=== PATIENT | female | born 1945 | race Caucasian/White ===

== ENCOUNTER → 2016-04-09 | Outpatient (CLI) | payer MEDICARE, OTHER ==
[~2016-04-09] MED LIST: ALPR0.254; ATR20T PO; AZIT-21 PO; BUSP5TAB59; CYCL10TA9 PO; D50KC PO; FORTEO; HYDR-34 PO; LEVO50TA6; METO-272; MPR22TI; MULT-264; NF-CYM60C; NFPRILOC40; OMEP-10 PO; OXYC-12 PO; SERT100T8; THYROID MED; TRAM50TA2; [UNRECOGNIZED DRUG - OTHER] PO
--- NOTE | 2016-04-09 10:06 | Diagnostic Imaging Report ---
PROCEDURE: CT chest without contrast. TECHNIQUE: Multiple contiguous axial images were obtained through the chest without the use of intravenous contrast. INDICATION: Lung nodule. COMPARISON: 01/19/2016. FINDINGS: Again seen is a pleural based irregular nodularity seen along the lateral aspect of each lung in the mid to lower lung zone bilaterally. No significant change from the previous exam is seen. There is a new focus of irregular nodularity in the anterior aspect of the right upper lobe, image 21, probably related to focal atelectasis. There is no significant consolidation or mass identified. The mediastinum demonstrates no mass or significantly enlarged nodes. The thoracic aorta is normal in caliber. No pleural or pericardial effusion. There is a cyst in the right hepatic lobe measuring 2.3 cm. The osseous structures demonstrate chronic compression fractures of T5 and T6. IMPRESSION: Stable bilateral lateral subpleural nodular densities in the mid to lower lung zones, favored to be related to scarring. Another followup in 6 months is recommended to ensure stability. Dictated by: Dictated on workstation # [id number]
== END ==
LOC: RAD 08:29
PROVIDERS: ATTEND Otolaryngology Otolaryngology/Facial Plastic Surgery
DX: R91.8 Other nonspecific abnormal finding of lung field (principal)
CPT/HCPCS: 71250

== ENCOUNTER 2016-06-29 10:21 | Emergency (ER) | payer MEDICARE, OTHER ==
[~2016-06-29] VITALS: Ht 167.6 cm; Wt 59.0 kg
[~2016-06-29 10:21] MED LIST changes: -ALPR0.254; -BUSP5TAB59; -LEVO50TA6; -METO-272; -SERT100T8; -TRAM50TA2
[2016-06-29] MEDS ORDERED: L.E.T. SYRINGE 5 ML ONE (10:28)
[2016-06-29] MEDS ORDERED: ALPR0.254 (10:46)
[2016-06-29] MEDS ORDERED: TRAM50TA2 (10:46)
[2016-06-29] MEDS ORDERED: BUSP5TAB59 (10:46)
[2016-06-29] MEDS ORDERED: SERT100T8 (10:46)
[2016-06-29] MEDS ORDERED: LEVO50TA6 (10:46)
[2016-06-29] MEDS ORDERED: METO-272 (10:46)
[2016-06-29] MEDS ORDERED: TETANUS,DIPTH,PERTUSS P/F (BOOSTRIX) 0.5 ML VIAL IM ONE (11:00)
[2016-06-29] MEDS ORDERED: LIDOCAINE/EPI 1%-1:100,000 (XYLOCAINE) 20ML ONE (11:11)
[2016-06-29] MEDS ORDERED: LIDOCAINE/EPI 1%-1:100,000 (XYLOCAINE) 20ML INJ ONE (11:15)
--- NOTE | 2016-06-29 11:34 | Diagnostic Imaging Report ---
PROCEDURE: CT head and CT cervical spine without contrast. TECHNIQUE: Multiple contiguous axial images were obtained through the brain and cervical spine without the use of intravenous contrast. Sagittal and coronal reformations through the cervical spine were then performed. INDICATION: Injury head and neck pain CT head There is no mass, shift of midline or hemorrhage to suggest an acute intracranial abnormality. The ventricles are somewhat prominent but no different in size when compared to the prior exam of 10/05/13. The previous exam did note considerable soft tissue edema over the left frontal bone. That injury has resolved. There is mild soft tissue edema over the right frontal bone on this study. The bone window show no sign of a skull fracture. The orbits are symmetrical and within normal limits. The sinuses, where visualized are clear. IMPRESSION: There is mild soft tissue edema over the right frontal bone. There is no evidence for a skull fracture or for an acute intracranial abnormality. CT cervical spine: The previous CT cervical spine exam performed on 10/05/13 noted degenerative disc and bony disease throughout the cervical spine, particularly at the C3-4 level. There was a calcified disc bulge centrally at this level which did result in central stenosis. That disc bulge is again evident on this study and does not seem to change significantly. The other degenerative changes involving the cervical spine seen on the prior exam do not appear have progressed significantly either. There is no fracture or acute bony abnormality identified. The previous exam did note a 5 MM low density nodule in the right lobe of thyroid. A thyroid ultrasound was recommended for further evaluation. According to our records that exam was not performed. On this study the low-density nodule in the right lobe now measures approximately 10-11 MM. I would recommend that ultrasound be performed for further study. The lung apices are clear. IMPRESSION: 1. There is no evidence for acute bony abnormality. 2. The degenerative disc and bony disease seen previously has not progressed significantly. 3. The low-density nodule in the right lobe of thyroid noted on the prior exam has increased in size. Ultrasound would be recommended to better characterize this finding. Dictated by: Dictated on workstation # [id number]
--- NOTE | 2016-06-29 11:43 | ED Fall/Injury ---
General Chief Complaint: Trauma-Non Activation Stated Complaint: FALL/HEAD INJ Nursing Triage Note: PT FELL AT HOME MISSED STEP, DENIES LOC, DENIES NECK PAIN, HAS LAC TO R SIDE FOREHEAD APPROX 3CM LENGTH. NO BLEEDING AT THIS X. Source: patient, family Exam Limitations: no limitations History of Present Illness Time seen by provider: 10:25 Initial Comments This feisty 71-year-old woman presents to the emergency room after tripping on the curb in the parking lot and falling onto the concrete. She struck her forehead on the concrete and has a significant laceration with significant bleeding. She denies any loss of consciousness or signs or symptoms of concussion. She denies neck injury or pain. She also has contusions to her knees but is ambulatory. Bleeding is controlled at this time but there was significant bleeding at the scene. She arrives by private vehicle. She reports some difficulty with balance and walking chronically due to spinal stenosis and joint pain. Location Injury Occurred: HOME Occurred: just prior to arrival Allergies and Home Medications Allergies Coded Allergies: Penicillins (Unverified Allergy, Mild, 05/19/08) cephalexin (Verified Allergy, Mild, HIVES, TONGUE SWELLS, 05/26/08) midazolam HCl (Unverified Allergy, Mild, "SHAKING", 12/16/12) Iodinated Contrast Media - IV Dye (Unverified Allergy, Unknown, HIVES, ) Uncoded Allergies: ENVIRONMENTAL (Allergy, Mild, 05/19/08) Home Medications Alprazolam 0.25 Mg Tablet, #60 (Reported) Atorvastatin 20 Mg Tablet, 1 EACH PO DAILY, (Reported) Buspirone HCl 5 Mg Tablet, #60 (Reported) Ergocalciferol 50,000 Unit Capsule, 50,000 UNIT PO WEEKLY, (Reported) Levothyroxine Sodium 50 Mcg Tablet, #90 (Reported) Metoprolol Succinate 50 Mg Tab.er.24h, #90 (Reported) Omeprazole 20 Mg Capsule.dr, 20 MG PO DAILY, (Reported) Oxycodone Hcl/Acetaminophen 1 Each Tablet, 1-2 EACH PO Q4-6H PRN, #20 (Reported) MAY TAKE 1 OR 2 TABS BY MOUTH EVERY 4-6 HRS NEEDED FOR PAIN. DO NOT EXCEED 3000 MG TYLENOL(ACETAMINOPHEN)IN A 24 HR PERIOD. (NO MORE THAN 9 TABS IN 24 HRS) Sertraline HCl 100 Mg Tablet, #180 (Reported) Tramadol HCl 50 Mg Tablet, #90 (Reported) [Lamsil] , 250 MG PO DAILY, (Reported) Constitutional: no symptoms reported Eyes: No Symptoms Reported Ears, Nose, Mouth, Throat: no symptoms reported Respiratory: no symptoms reported Cardiovascular: no symptoms reported Gastrointestinal: no symptoms reported Genitourinary: no symptoms reported Musculoskeletal: see HPI Skin: see HPI Psychiatric/Neurological: No Symptoms Reported Past Vwdbqsw-Gcahud-Mtcvxw Hx Patient Social History Alcohol Use: Denies Use Recreational Drug Use: No Smoking Status: Never a Smoker Recent Foreign Travel: No Contact w/Someone Who Travel: No Recent Infectious Disease Expo: No Immunizations Up To Date Tetanus Booster (TDap): More than 5yrs Surgeries HX Surgeries: Yes (OTHROPEDIC-l knee, l side of pelvis, CHEST TUBE) Surgeries: Orthopedic Respiratory Hx Respiratory Disorders: No Cardiovascular Hx Cardiac Disorders: Yes (30% blockage in the LAD) Cardiac Disorders: Coronary Artery Disease, Hypertension Neurological Hx Neurological Disorders: Yes (Final stenosis) Reproductive System Hx Reproductive Disorders: No Sexually Transmitted Disease: No 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 Genitourinary Hx Genitourinary Disorders: No Gastrointestinal Hx Gastrointestinal Disorders: Yes Gastrointestinal Disorders: Gastroesophageal Reflux Musculoskeletal Hx Musculoskeletal Disorders: Yes (Spinal stenosis) Musculoskeletal Disorders: Arthritis Endocrine Hx Endocrine Disorders: Yes Endocrine Disorders: Hypothyroidsim HEENT HX ENT Disorders: Yes (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) Hearing Impairment: Hard of Hearing Cancer Hx Cancer: Yes Cancer: Skin Psychosocial Hx Psychiatric Problems: Yes Behavioral Health Disorders: Depression Integumentary HX Skin/Integumentary Disorder: No Blood Transfusions Hx Blood Disorders: No Adverse Reaction to a Blood Tr: No Physical Exam Vital Signs Vital Sign - Last 12Hours 06/29/16 10:25 Temp 97.9 Pulse 62 Resp 18 B/P (MAP) 165/80 Pulse Ox 98 Capillary Refill : Less Than 3 Seconds General Appearance: WD/WN, no apparent distress HEENT: PERRL/EOMI, TMs normal, pharynx normal, other (3 cm laceration above the right brow) Neck: non-tender, supple, normal inspection Cardiovascular: regular rate, rhythm, no edema, no murmur Respiratory: lungs clear, normal breath sounds, no respiratory distress, no accessory muscle use Gastrointestinal: normal bowel sounds, non tender, soft Extremities: swelling, other (Tenderness, swelling, and abrasions to the knees bilaterally, left greater than right. 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, no motor/sensory deficits, alert, normal mood/affect, oriented x 3 Skin: normal color, warm/dry Cathy Coma Score Best Eye Response: (4) Open Spontaneously Best Verbal Response: (5) Oriented Best Motor Response: (6) Obeys Commands Cathy Total: 15 Laceration Repair : Wound Location: Face Wound Length (cm): 3 Wound's Depth, Shape: sub Q Wound Explored: clean Irrigated w/ Saline (ccs): 100 Betadine Prep?: Yes Anesthesia: Lidocaine w/ Epi Volume Anesthetic (ccs): 3 Suture: Prolene Suture Size: 5-0 Number of Sutures: 4 Progress/Results/Core Measures Results/Orders My Orders Orders - AVNI RENEE MD Let Solution (Let Solution) (06/29/16 10:28) Ct Head/Cervical Spine Wo (06/29/16 10:34) Dipht,Pertuss(Acell),Tet Adult (Boostrix (06/29/16 11:00) Lidocaine/Epi 1% 1:100,000 (Xylocaine /E (06/29/16 11:15) Lidocaine/Epi 1% 1:100,000 (Xylocaine /E (06/29/16 11:11) Knee, Left, 3 Views (06/29/16 11:48) Medications Given in ED Vital Signs/I&O Vital Sign - Last 12Hours 06/29/16 06/29/16 10:25 11:53 Temp 97.9 97.9 Pulse 62 54 Resp 18 16 B/P (MAP) 165/80 Pulse Ox 98 99 Blood Pressure Mean: 108 Progress Note : Progress Note LET was applied to the laceration during imaging of the head. Laceration was repaired with suture. She was given a tetanus booster with a Boostrix. She was advised to stay home from work today and to ambulate with a cane or walker. She was also informed of the thyroid nodule that has increased in size. She was instructed to follow-up with her doctor regarding further imaging. Patient and her daughter expressed understanding after review of discharge instructions. Patient was noted to have some difficulty bearing weight on the left knee when she got up to get dressed. X-ray images of the knee were obtained. Diagnostic Imaging Diagonstic Imaging: CT Plain Films/CT/US/NM/MRI: c-spine, head Comments CT head and C-spine viewed by me and report reviewed. See report below: NAME: [facility] REC#: [id number] PT STATUS: REG ER : 1945 PHYSICIAN: AVNI RENEE MD ADMIT DATE: 06/29/16/ER Draft Date of Exam:06/29/16 CT HEAD/CERVICAL SPINE WO PROCEDURE: CT head and CT cervical spine without contrast. TECHNIQUE: Multiple contiguous axial images were obtained through the brain and cervical spine without the use of intravenous contrast. Sagittal and coronal reformations through the cervical spine were then performed. INDICATION: Injury head and neck pain CT head There is no mass, shift of midline or hemorrhage to suggest an acute intracranial abnormality. The ventricles are somewhat prominent but no different in size when compared to the prior exam of 10/05/13. The previous exam did note considerable soft tissue edema over the left frontal bone. That injury has resolved. There is mild soft tissue edema over the right frontal bone on this study. The bone window show no sign of a skull fracture. The orbits are symmetrical and within normal limits. The sinuses, where visualized are clear. IMPRESSION: There is mild soft tissue edema over the right frontal bone. There is no evidence for a skull fracture or for an acute intracranial abnormality. CT cervical spine: The previous CT cervical spine exam performed on 10/05/13 noted degenerative disc and bony disease throughout the cervical spine, particularly at the C3-4 level. There was a calcified disc bulge centrally at this level which did result in central stenosis. That disc bulge is again evident on this study and does not seem to change significantly. The other degenerative changes involving the cervical spine seen on the prior exam do not appear have progressed significantly either. There is no fracture or acute bony abnormality identified. The previous exam did note a 5 MM low density nodule in the right lobe of thyroid. A thyroid ultrasound was recommended for further evaluation according to our records that exam was not performed. On this study the low-density nodule in the right lobe now measures approximately 10-11 MM. I would recommend that ultrasound be performed for further study. The lung apices are clear. IMPRESSION: 1. There is no evidence for acute bony abnormality. 2. Degenerative disc and bony disease seen previously has not progressed significantly. 3. The low-density nodule in the right lobe of thyroid noted on the prior exam has increased in size. Ultrasound would be recommended to better characterize this finding. Dictated on workstation # [id number] Dict: 06/29/16 1103 Trans: 06/29/16 1134 [facility] [id number] Interpreted by: DONNA FERRELL MD Diagonstic Imaging: Xray Plain Films/CT/US/NM/MRI: knee Comments Knee x-ray viewed by me and report reviewed. See report below: NAME: [facility] REC#: [id number] PT STATUS: DEP ER : 1945 PHYSICIAN: AVNI RENEE MD ADMIT DATE: 06/29/16/ER Signed Date of Exam: 06/29/16 KNEE, LEFT, 3 VIEWS INDICATION: Fall. Pain superiorly to knee. FINDINGS: There is fluid within the suprapatellar bursa. No fractures are demonstrated. There is considerable degenerative disease noted of the patellofemoral joint. Mild degenerative changes noted in the medial compartment. Articulating surfaces of the femoral condyles are smooth. No loose bodies demonstrated. IMPRESSION: There is effusion in the suprapatellar bursa with advanced degenerative disease of the patellofemoral joint. No acute fractures or dislocations demonstrated. Dictated by: Dictated on workstation # [id number] Dict: 06/29/16 1214 Trans: 06/29/16 1621 Interpreted by: TENA KENYON MD Electronically signed by: TENA KENYON MD 06/29/16 1621 Departure Impression Impression: Primary Impression: Fall on same level from tripping as cause of accidental injury Additional Impressions: Laceration of forehead Qualified Codes: S01.81XA - Laceration without foreign body of other part of head, initial encounter Frequent falls Spinal stenosis Qualified Codes: M48.00 - Spinal stenosis, site unspecified Thyroid nodule Swelling of left knee joint Contusion of left knee Qualified Codes: S80.02XA - Contusion of left knee, initial encounter Disposition: HOME, SELF-CARE Condition: Improved Departure-Patient Inst. Decision time for Depature: 11:38 Referrals: APOLINAR MANCINI DO (PCP/Family) Primary Care Physician Patient Instructions: Laceration Repair With Stitches (DC) Add. Discharge Instructions: Monitor your wound for signs of infection including increasing redness, increasing pain, puslike drainage, or fever. Return to care promptly few notice these signs or symptoms. You may shower as usual but avoid submersion until sutures are removed. Avoid scrubbing directly over the sutures. Return to the ER in about 7 days to have your sutures removed. Follow-up with Dr. De León regarding your spinal stenosis, difficulty with balance, and falls. Do not return to work today. Follow-up with your primary care provider as soon as possible. You had an incidental finding of a thyroid nodule on your CT scan which has increased in size from the prior CT scan. You should have an ultrasound performed to further evaluate this nodule. Please follow-up with your doctor to discuss further. All discharge instructions reviewed with patient and/or family. Voiced understanding. Copy Copies To 1: APOLINAR MANCINI JOSHUA T MD Jun 29, 2016 11:43
[2016-06-29 11:53] VITALS: BP 163/57
--- NOTE | 2016-06-29 12:18 | Diagnostic Imaging Report ---
INDICATION: Fall. Pain superiorly to knee. FINDINGS: There is fluid within the suprapatellar bursa. No fractures are demonstrated. There is considerable degenerative disease noted of the patellofemoral joint. Mild degenerative changes noted in the medial compartment. Articulating surfaces of the femoral condyles are smooth. No loose bodies demonstrated. IMPRESSION: There is effusion in the suprapatellar bursa with advanced degenerative disease of the patellofemoral joint. No acute fractures or dislocations demonstrated. Dictated by: Dictated on workstation # [id number]
== END 2016-06-29 12:22 | disposition home or self-care (01) ==
LOC: EDUNIT# 10:21 → ER 10:22
DX: S01.81XA Laceration without foreign body of other part of head, initial encounter (principal); S80.02XA Contusion of left knee, initial encounter; Z23 Encounter for immunization; M47.812 Spondylosis without myelopathy or radiculopathy, cervical region; M48.02 Spinal stenosis, cervical region; E04.1 Nontoxic single thyroid nodule; Z79.899 Other long term (current) drug therapy; W10.9XXA Fall (on) (from) unspecified stairs and steps, initial encounter; Y92.009 Unspecified place in unspecified non-institutional (private) residence as the place of occurrence of the external cause; Y99.8 Other external cause status
CPT/HCPCS: 12013; 70450; 72125; 73562; 90471; 90715

== ENCOUNTER → 2016-07-18 | Outpatient (CLI) | payer MEDICARE, OTHER ==
[~2016-07-18] MED LIST changes: +ALPR0.254; +BUSP5TAB59; +LEVO50TA6; +METO-272; +SERT100T8; +TRAM50TA2
--- NOTE | 2016-07-18 13:12 | Diagnostic Imaging Report ---
PROCEDURE: US Thyroid. TECHNIQUE: Multiple real-time grayscale images were obtained of the thyroid in various projections. Thyroid nodules seen on CT of 06/29/2016. No prior thyroid ultrasound is available for comparison. FINDINGS: The right thyroid lobe is 4.2 x 1.8 x 1.2 cm. The left thyroid lobe is 4.5 x 1.1 x 1.0 cm. There is a dominant solid nodule measuring 1.2 x 1.1 x 1.1 cm in the mid right thyroid lobe demonstrating mild internal vascularity with color Doppler. The left lobe demonstrates a calcified nodule measuring 0.7 x 0.6 x 0.5 cm with shadowing and adjacent hypoechoic nodule measuring 0.6 x 0.3 x 0.5 cm. IMPRESSION: Indeterminate thyroid nodules may relate to multinodular goiter. Dictated by: Dictated on workstation # [id number]
== END ==
LOC: RAD 08:16
PROVIDERS: ATTEND Otolaryngology Otolaryngology/Facial Plastic Surgery
DX: E04.1 Nontoxic single thyroid nodule (principal)
CPT/HCPCS: 76536

== ENCOUNTER 2016-08-20 08:00 | Outpatient (CLI) | payer MEDICARE, OTHER ==
[~2016-08-20] VITALS: Ht 167.6 cm; Wt 59.0 kg
[~2016-08-20 08:00] MED LIST changes: -ALPR0.254; +ALPR0.254 PO; -BUSP5TAB59; +BUSP5TAB59 PO; -LEVO50TA6; +LEVO50TA6 PO; -METO-272; +METO-272 PO; -SERT100T8; +SERT100T8 PO; -TRAM50TA2; +TRAM50TA2 PO
[2016-08-20] MEDS ORDERED: HYDR-3820 PO (08:43)
== END 2016-08-20 09:00 ==
LOC: PREOP 08:00
PROVIDERS: ATTEND Surgery Pediatric Surgery
DX: Z01.818 Encounter for other preprocedural examination (principal); Z12.11 Encounter for screening for malignant neoplasm of colon; R13.10 Dysphagia, unspecified

== ENCOUNTER 2016-08-21 08:14 | Day surgery (SDC) | payer MEDICARE, OTHER ==
[~2016-08-21] VITALS: Ht 167.6 cm; Wt 59.0 kg
[~2016-08-21 08:14] MED LIST changes: +HYDR-3820 PO
[2016-08-21 08:35] VITALS: BP 113/72
[2016-08-21] MEDS ORDERED: fentaNYL INJECTION 100 MCG/2 ML AMP IVP PRN (08:45)
[2016-08-21] MEDS ORDERED: MIDAZOLAM 2 MG/2 ML (VERSED) VIAL IVP PRN (08:45)
[2016-08-21] MEDS ORDERED: FLUMAZENIL (ROMAZICON) 0.1 MG/ML 5 ML VIAL INJ PRN (08:45)
[2016-08-21] MEDS ORDERED: NALOXONE 0.4 MG/ML 1 ML (NARCAN) VIAL IVP PRN (08:45)
[2016-08-21] MEDS ORDERED: LIDOCAINE JELLY 2% (XYLOCAINE) 5 ML TUBE MM PRN (08:45)
[2016-08-21] MEDS ORDERED: NS IV 500 ML 500 ML IV SCH (08:45)
[2016-08-21] MEDS ORDERED: HURRICAINE EXT TUBE (BENZOCAINE) XX PRN (08:45)
--- NOTE | 2016-08-21 10:04 | Conscious Sedation/ASA ---
Conscious Sedation Pre-Proced Time Reviewed: 09:15 ASA Class: 2 Airway Mallampati Classification: (cocopah appropriate class) I. II. III, IV Lungs Heart ASA score ASA 1: a normal healthy patient ASA 2: a patient with a mild systemic disease (mid diabetes, controlled hypertension, obesity ASA 3: a patient with a severe systemic disease that limits activity (angina , COPD, prior Myocardial infarction) ASA 4: a patient with an incapacitating disease that is a constant threat to life (CHF, renal failure) ASA 5: a moribund patient not expected to survive 24 hrs. (ruptured aneurysm) ASA 6: a declared brain patient whose organs are being harvested. For emergent operations, add the letter E after the classification Grade 2 Sedation Plan: Analgesia, Amnesia, Plan communicated to team members, Discussed options with patient/fam, Discussed risks with patient/fam Note The patient is an appropriate candidate to undergo the planned procedure, sedation, and anesthesia. The patient immediately re-assessed prior to indication. ANABELA PALOMARES MD Aug 21, 2016 10:04
--- NOTE | 2016-08-21 10:05 | Progress Note-Pre Operative ---
Pre-Operative Progress Note H&P Reviewed The H&P was reviewed, patient examined and no changes noted. Date Seen by Provider: Aug 21, 2016 Time Seen by Provider: 10:15 Date H&P Reviewed: Aug 21, 2016 Time H&P Reviewed: 09:15 Pre-Operative Diagnosis: GERD, dysphagia, change bowel habits ANABELA PALOMARES MD Aug 21, 2016 10:04
[2016-08-21] MEDS ORDERED: ACETAMINOPHEN 325 MG TABLET/CAPLET (TYLENOL) PO PRN (10:15)
[2016-08-21] MEDS ORDERED: morphine INJ 10 MG/ML 1ML (SYR OR VIAL) IV PRN (10:15)
[2016-08-21] MEDS ORDERED: HYDROcodone/APAP 5 MG/325 MG (LORTAB) TAB PO PRN (10:15)
[2016-08-21] MEDS ORDERED: ONDANSETRON 4 MG/2 ML (SDV) Z0FRAN IV PRN (10:15)
[2016-08-21] MEDS ORDERED: PROPOFOL INJECTION 50 ML IV ONE (10:46)
[2016-08-21] MEDS ORDERED: proPOfol 200 MG/20 ML (DIPRIVAN) VIAL IV ONE (11:25)
--- NOTE | 2016-08-21 12:03 | Progress Note-Post Operative ---
Post-Operative Progess Note Surgeon (s)/Nursing Support Worker (s) Surgeon ANABELA PALOMARES MD Nursing Support Worker: none Pre-Operative Diagnosis GERD, dysphagia, change bowel habits Post-Operative Diagnosis reflux esophagitis(class B-C)with distal esophageal stricture, moderate gastritis with small healing antral ulcer. chronic stage 2 ext and int hemorrhoids, mild sigmoid diverticulosis. Procedure & Operative Findings Date of Procedure 08/21/16 Procedure Performed/Findings EGD with bx and dilatation. Anesthesia Type MAC Estimated Blood Loss Estimated blood loss (mL): minimal Specimens/Packing Specimens Removed antrum, GE jxn ANABELA PALOMARES MD Aug 21, 2016 12:03 pm
[2016-08-21 12:05] VITALS: BP 127/78
--- NOTE | 2016-08-21 12:08 | Discharge Inst-Surgical ---
D/C Lap Instructions-MARIELLE Follow Up PRN Activity as tolerated High Fiber Diet 25g or more per day Avoid Alcohol, Caffeine, Spicy [place] and Acid foods. Drink 64 fluid oz or more of fluids per day. Symptoms to Report: Fever over 101 degree F, Nausea/Vomiting If any problems/questions: Contact your physician or go to Emergency Room ANABELA PALOMARES MD Aug 21, 2016 12:08 pm
[2016-08-21 12:27] VITALS: BP 132/79
[2016-08-21 12:35] VITALS: BP 132/79
--- NOTE | 2016-08-21 18:56 | OPERATIVE REPORT ---
DATE OF SERVICE: 08/21/2016 ATTENDING PRIMARY CARE PHYSICIAN: Dr. Gracy Salmon. PREOPERATIVE DIAGNOSES: 1. Dysphagia. 2. Weight loss. 3. Change in bowel habits. POSTOPERATIVE DIAGNOSES: 1. Reflux esophagitis between class B and C with a distal esophageal stricture, most likely secondary to previous antireflux procedure. 2. No recurrent hiatal hernia, moderate gastritis with a small old healed ulcer approximately 3 mm in size at the antrum. 3. Chronic stage II external and internal hemorrhoids. 4. Mild sigmoid diverticulosis. PROCEDURE: 1. EGD with biopsy and dilatation. 2. Colonoscopy. SURGEON: Anabela Palomares MD. ANESTHESIA: Monitored anesthesia care administered by anesthesia. ESTIMATED BLOOD LOSS: Minimal. FINDINGS: EGD: Reflux esophagitis between class B and C with a distal esophageal stricture. No recurrent hiatal hernia, moderate severity gastritis with a chronic old healed ulcer at the antrum approximately 3 mm in size. Colonoscopy: Chronic stage II external and internal hemorrhoids with no inflammation or bleeding. There was a mild sigmoid diverticulosis with no signs of diverticulitis. The remainder of the colon was normal. There were no polyps or any neoplasms identified. DISPOSITION: The patient tolerated the procedure well. INDICATIONS: The patient is a 71-year-old female in need of an EGD and colonoscopy. Her last colonoscopy was 10 years ago and she reports that to be normal. She reports that she has had some mild change in bowel habits over time. She also has had issues with dysphagia for some amount of time. She is status post a [place] gastropexy and hiatal hernia repair in 2008. 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 She reports that she has had significant weight loss in the past few years. DESCRIPTION OF PROCEDURE: The patient was brought to the endoscopy suite and laid in the left lateral decubitus position with head slightly elevated. After adequate IV pain and sedating medications and monitored anesthesia care per anesthesia, the mouthpiece was applied. Endoscope was placed in the mouth, visualizing the pharynx and hypopharyngeal region. Vocal cords, epiglottis and vallecula identified and appeared to be normal. The endoscope was then gently intubated into the esophageal opening and esophagus insufflated. Endoscope was then advanced to the first, second and third portions of the esophagus. At the level of the GE junction, a reflux esophagitis class B and C identified with a mild distal esophageal stricture, most likely secondary from her previous antireflux procedure. A biopsy was taken with forceps with visualization of good hemostasis. The endoscope was able to pass through the strictured area. The endoscope retroflexed visualizing an intact previous hiatal hernia repair and antireflux procedure. There was a moderate severity gastritis more focused towards antrum with a chronic old healed ulcer which was small, approximately 2 to 3 mm in size. This was biopsied using forceps with visualization of good hemostasis. The endoscope was then advanced to the pylorus and the first and second portions of the duodenum, which appeared normal with no distal obstructions. We then proceeded with dilatation of the distal esophageal sphincter using a CRE fixed guidewire balloon. This was advanced into the stomach and pulled back to the area of stricture. We then first proceeded with 3 atmospheres of pressure 18 mm in diameter with minimal resistance. We then proceeded to 4.5 atmospheres of pressure with mild resistance. We then proceeded to 6 atmospheres of pressure or 20 mm in diameter with mild resistance and left this in place for approximately 60 seconds. The balloon was then desufflated and removed. No mucosal tears or bleeding identified. The endoscope was then slowly withdrawn taking a second look and suctioning of residual air with no additional findings. The patient tolerated the procedure well. We will recommend continued medical management with small and more frequent meals, avoidance of eating at night as well as head elevation while laying supine. She also needs to increase total caloric intake to decrease weight loss. Even if this is a supplemental meal replacement shake is incorporated as well. Under the same monitored anesthesia care, we then proceeded with colonoscopy portion of the procedure. A digital rectal examination was performed which revealed mild chronic stage II external and internal hemorrhoids, not actively edematous, nor inflamed and no bleeding. Normal sphincter tone was felt and there were no palpable masses. The endoscope was then intubated to the anus and rectum gently insufflated. The endoscope was then advanced to the valves of Senior of the rectum with no polyps or any neoplasms identified. The endoscope was then advanced through the sigmoid colon where mild sigmoid diverticulosis identified. There were no mucosal inflammatory changes to indicate any active diverticulitis. The endoscope was then advanced to the remainder of the descending, transverse and ascending colon to the cecum. These segments were normal. There were no polyps or any neoplasms identified throughout the colon or rectum. The endoscope was then slowly withdrawn taking a second look and suctioning of residual air with no additional findings. The patient tolerated the procedure well. We will recommend medical management with a high fiber diet with at least 25 grams of fiber per day as well as at least 64 fluid ounces of water daily to promote soft stools on a daily basis. She does not need another colonoscopy for another 10 years; however, sooner if any problems arise. Job ID: [id number] DocumentID: [id number] Dictated Date: 08/21/2016 12:17:01 Event Marketing Intern Date: 08/21/2016 18:56:05 Dictated By: ANABELA PALOMARES MD MTDD
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
== END 2016-08-21 12:35 | disposition home or self-care (01) ==
LOC: ENDO 08:14
PROVIDERS: ATTEND Surgery Pediatric Surgery
DX: K21.0 Gastro-esophageal reflux disease with esophagitis (principal); K22.2 Esophageal obstruction; K57.30 Diverticulosis of large intestine without perforation or abscess without bleeding; K29.60 Other gastritis without bleeding; K64.8 Other hemorrhoids; I10 Essential (primary) hypertension; M19.90 Unspecified osteoarthritis, unspecified site; I25.10 Atherosclerotic heart disease of native coronary artery without angina pectoris; E78.5 Hyperlipidemia, unspecified; Z79.899 Other long term (current) drug therapy

== ENCOUNTER → 2016-10-30 | Outpatient (CLI) | payer MEDICARE, OTHER ==
[~2016-10-30] MED LIST changes: -METO-272 PO; +METO-370 PO
--- NOTE | 2016-10-30 13:31 | Diagnostic Imaging Report ---
PROCEDURE: CT abdomen and pelvis without contrast. TECHNIQUE: Multiple contiguous axial images were obtained through the abdomen and pelvis without the use of intravenous contrast. INDICATION: Epigastric pain, weight loss. FINDINGS: The previous CT abdomen/pelvis exam performed on 12/17/07 noted a well-defined low-density lesion in the right lobe of the liver measuring 12-13 mm. This was felt to be related to a cyst. On this exam, that finding is again evident and now measures approximately 22 mm in maximum diameter. This finding still has a generally benign appearance and I do feel that this is a cyst. The liver is otherwise unremarkable. The spleen, pancreas, adrenals, gallbladder, kidneys, aorta and inferior vena cava are unremarkable for an acute abnormality. The stomach is partially distended by gas and fluid and consequently difficult to assess. There is no obvious gastric abnormality evident. As on the prior exam, the pelvic contents are partially obscured due to artifact related to the orthopedic hardware along the medial aspect of the left ilium and superior pubic ramus. The uterus is grossly unremarkable. The urinary bladder is not well visualized. There do appear to be numerous diverticula involving the sigmoid colon but there is no evidence for acute diverticulitis. The appendix was not well visualized but there are no indirect signs of acute appendicitis. There is no pelvic mass or free fluid collection noted. The bone windows show no evidence for a fracture or for a destructive lesion. The lung bases are generally clear. IMPRESSION: 1. There is no acute abnormality of the abdomen or pelvis. 2. The small cyst in the right lobe of the liver seen previously has increased in size but still has a generally benign appearance. 3. The postsurgical changes involving the left bony pelvis noted on the prior study are again evident and do not appear to have changed significantly. Dictated by: Dictated on workstation # [id number]
== END ==
LOC: RAD 09:44
PROVIDERS: ATTEND Family Medicine
DX: K76.89 Other specified diseases of liver (principal); Z98.890 Other specified postprocedural states
CPT/HCPCS: 71250; 74176

== ENCOUNTER → 2016-10-30 | Outpatient (CLI) | payer MEDICARE, OTHER ==
--- NOTE | 2016-10-30 13:22 | Diagnostic Imaging Report ---
PROCEDURE: CT chest without contrast. TECHNIQUE: Multiple contiguous axial images were obtained through the chest without the use of intravenous contrast. INDICATION: Lung nodule. FINDINGS: The previous CT chest exam performed on 04/09/2016 noted irregular pleural-based nodules along the lateral aspect of each lower lobe. These nodules seem stable when compared to the prior CT chest exam of 01/19/2016. On this exam, those findings are again evident and do not appear to have changed significantly. Furthermore, these findings were also present on the prior CT chest exam of 01/20/2009 and appear similar to that study as well. The nodular density along the periphery of the left lower lobe however is slightly larger than on the prior exam of 2008. On this study, it now measures 10 mm in maximum AP diameter as opposed to 7 mm on the prior exam. I do suspect that this is a benign process. Even so, it may prove worthwhile to have a six-month followup exam of the lungs for continued evaluation. The two small parenchymal nodules in the periphery of the right midlung seen on the 2008 exam are again evident and no different. Most likely, these are benign. The prior exam also noted a new irregular nodular density in the anterior aspect of the right upper lobe. That finding is not as conspicuous on this exam. I suspect it was secondary to a small focal area of atelectasis or infiltrate. There is still some residual density in this region, however. The lungs are otherwise clear. There is no sign of failure, pneumonia, or of pleural effusion to suggest an acute abnormality. The heart size is stable and at the upper limits of normal. There are coronary artery calcifications evident. The ascending aorta is not abnormally dilated. There is no mediastinal or hilar adenopathy, although this exam is limited in the evaluation of adenopathy due to the absence of intravenous contrast. The small nodule in the right lobe of the thyroid seen on the thyroid ultrasound exam of 07/18/2016 is again evident and no different. The sections through the upper abdomen fail to show any sign of an acute abnormality. The suspected 2.3 cm cyst in the right lobe of the liver seen previously is again evident and does measure somewhat larger on this exam. This cyst is now estimated to be 2.7 cm. This finding still has a generally benign appearance. There is no acute abnormality of the upper abdomen. The bone windows show no sign of a fracture or of a destructive lesion. 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 There is no obvious breast mass. According to our records, the patient has not had a recent (within the last year) mammogram. If the patient has had a recent mammogram elsewhere, then no additional imaging would be recommended. If the patient has not had a recent mammogram, however, then mammography would be recommended. IMPRESSION: 1. The irregular pleural-based densities in both lungs seen previously do not appear to have changed adversely. The area of abnormal density along the anterior aspect of the right upper lobe is actually less prominent. These findings are most likely benign but a six-month followup CT chest exam would be recommended for continued evaluation. 2. There is no acute cardiopulmonary abnormality evident. 3. The low-density nodule in the right lobe of the thyroid seen on the recent thyroid ultrasound exam is again evident and does not appear to have changed. 4. There is no obvious breast mass. Recommendations as above. Dictated by: Dictated on workstation # [id number]
== END ==
LOC: RAD 09:40
PROVIDERS: ATTEND Otolaryngology Otolaryngology/Facial Plastic Surgery
DX: R91.8 Other nonspecific abnormal finding of lung field (principal); E04.1 Nontoxic single thyroid nodule
CPT/HCPCS: 71250

== ENCOUNTER → 2017-02-12 | Outpatient (CLI) | payer MEDICARE, OTHER ==
[~2017-02-12] MED LIST changes: +BARIUM SUSPENSION 105% (LIQUID POLIBAR PLUS) 240 ML/DOSE PO ONE; +BARIUM SUSPENSION 60% (LIQUID EZ PAQUE) 240 ML DOSE PO ONE
--- NOTE | 2017-02-12 09:42 | Diagnostic Imaging Report ---
EXAMINATION: Barium swallow double-contrast. INDICATION: Dysphagia Fluoroscopy time: One minute and 14 seconds TECHNIQUE: [employer] image of the chest was performed. Subsequently, the patient was given gas forming granules for oral ingestion followed by thick and thin barium to drink. Swallowing through the esophagus was observed with fluoroscopy and overhead images, as well as multiple spot images in the upright and prone positions, were taken. FINDINGS: [employer] image of the chest demonstrate no significant abnormality. No significant reflux is seen during the study. Occasional tertiary contractions and incomplete esophageal emptying is seen particularly in prone position, compatible with mild motility dysfunction, probably age related.. The esophagus is normal in caliber and contour. There is no mucosal abnormality, diverticulum or filling defect to suggest a mass. There is no hiatal hernia demonstrated. 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 Dictated by: Dictated on workstation # [id number]
== END ==
LOC: RAD 08:16
PROVIDERS: ATTEND Otolaryngology Otolaryngology/Facial Plastic Surgery
DX: K22.8 Other specified diseases of esophagus (principal)
CPT/HCPCS: 74220

== ENCOUNTER → 2017-05-27 | Outpatient (CLI) | payer MEDICARE, OTHER ==
[~2017-05-27] MED LIST changes: -BARIUM SUSPENSION 105% (LIQUID POLIBAR PLUS) 240 ML/DOSE PO ONE; -BARIUM SUSPENSION 60% (LIQUID EZ PAQUE) 240 ML DOSE PO ONE
--- NOTE | 2017-05-27 11:33 | Diagnostic Imaging Report ---
INDICATION: Lung nodule. TECHNIQUE: CT chest obtained without IV contrast and compared to 10/30/2016. FINDINGS: There are no enlarged mediastinal or hilar nodes. There are no enlarged axillary nodes. There is no pleural or pericardial fluid. A small nodular density in the right midlung is seen measuring about 4 mm, this appears similar on the previous study. There is some pleural thickening and scarring in the right lateral pleural space which appears similar to the prior study. There is some parenchymal scarring in the lingular segment. Right apical scarring with slight nodularity is again noted, with unchanged appearance compared to the prior study, with nodular area measuring about 5 mm. Visualized portions of the upper abdomen demonstrated a benign-appearing cyst in the right lobe of the liver anteriorly which is unchanged. IMPRESSION: Stable areas of parenchymal scarring in both lungs. Stable 4 mm nodular density in the right midlung laterally as well as stable area of scarring versus nodular area in the right apex. There is no new abnormality. The nodule in the right midlung mentioned above is stable compared back to 01/20/2009 and therefore can be considered a benign finding. The areas of parenchymal scarring are also stable compared to that prior study. The area of nodularity within the scar in the right apex stable from the previous CT of 10/30/2016 but appears a little thicker than the previous study of 01/20/2009, but is unchanged compared to 01/19/2016. Consider six-month followup with no further followup if this is unchanged at that time. Dictated by: Dictated on workstation # [id number]
== END ==
LOC: RAD 09:21
PROVIDERS: ATTEND Otolaryngology Otolaryngology/Facial Plastic Surgery
DX: J98.4 Other disorders of lung (principal); R91.8 Other nonspecific abnormal finding of lung field
CPT/HCPCS: 71250

== ENCOUNTER → 2017-09-11 | Outpatient (CLI) | payer MEDICARE, OTHER | LOC: LABNPT 11:25 | PROVIDERS: ATTEND Otolaryngology Otolaryngology/Facial Plastic Surgery | DX: J45.909 Unspecified asthma, uncomplicated (principal) | CPT/HCPCS: 87070; 87077; 87186; 87205 ==

== ENCOUNTER → 2018-06-07 | Outpatient (CLI) | payer MEDICARE, OTHER ==
--- NOTE | 2018-06-07 20:10 | Diagnostic Imaging Report ---
PROCEDURE: CT head without contrast. TECHNIQUE: Multiple contiguous axial images were obtained through the brain without the use of intravenous contrast. Auto Exposure Controls were utilized during the CT exam to meet ALARA standards for radiation dose reduction. INDICATION: Fell last night, head pain COMPARISON STUDY: CT scan of the head from 06/29/16. FINDINGS: Noncontrast CT scan of the head demonstrates stable atrophy. No focal areas of ischemia identified. There is no mass effect, midline shift, hemorrhage or extra-axial fluid collections. Bone windows demonstrate no evidence of a fracture. IMPRESSION: There is stable atrophy. Findings were called to Kailey Lyon. Dictated by: Dictated on workstation # [id number]
== END ==
LOC: RAD 16:20
PROVIDERS: ATTEND Nurse Practitioner Family
DX: S00.93XA Contusion of unspecified part of head, initial encounter (principal); S62.315A Displaced fracture of base of fourth metacarpal bone, left hand, initial encounter for closed fracture; I10 Essential (primary) hypertension; E03.9 Hypothyroidism, unspecified; E78.5 Hyperlipidemia, unspecified; M13.80 Other specified arthritis, unspecified site; F41.9 Anxiety disorder, unspecified; W18.30XA Fall on same level, unspecified, initial encounter
CPT/HCPCS: 70450

== ENCOUNTER 2018-09-01 12:12 | Emergency (ER) | payer MEDICARE, OTHER ==
[~2018-09-01] VITALS: Ht 167.6 cm; Wt 59.0 kg
--- OUTSIDE RECORDS SUMMARY | 2018-09-01 12:19 | XMS REPORT | Continuity of Care Document ---
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 filtration rate > NRG Sputum Gram stain - 09/11/17 11:00 GRAM STAIN SPUTUM FEW GRAM POSITIVE COCCI NRG Bacterial sputum culture - 09/11/17 11:00 FREE TEXT EXTERNAL PLUS NORMAL CHACORTA NRG QUANTITY OF GROWTH Scant Growth NRG MRSA AGAR MRSA isolated (Screening test for MRSA is positive) NRG CALL POSITIVES (F1 HELP) CALLED TO DR MARTÍNEZ'S OFFICE 09/12/17 09:00 BY GIOVANNI [facility] Bacterial sputum culture [id number] [facility] Bacterial susceptibility panel - 09/11/17 11:00 Gentamicin susceptibility test by minimum inhibitory concentration <= NRG Tobramycin susceptibility test by minimum inhibitory concentration <= NRG Piperacillin/tazobactam susceptibility test by minimum inhibitory concentration S NRG Ciprofloxacin susceptibility test by minimum inhibitory concentration <= NRG Meropenem susceptibility test by minimum inhibitory concentration <= NRG Cefepime susceptibility test by minimum inhibitory concentration 2 NRG Amikacin susceptibility test by minimum inhibitory concentration S [facility] Bacterial susceptibility panel - 09/11/17 11:00 Oxacillin susceptibility test by minimum inhibitory concentration >= NRG Gentamicin susceptibility test by minimum inhibitory concentration <= NRG Clindamycin susceptibility test by minimum inhibitory concentration >= NRG Erythromycin susceptibility test by minimum inhibitory concentration >= NRG Trimethoprim/sulfamethoxazole susceptibility test by minimum inhibitoryconcentration S NRG Vancomycin susceptibility test by minimum inhibitory concentration 1 NRG Levofloxacin susceptibility test by minimum inhibitory concentration 4 NRG Rifampin susceptibility test by minimum inhibitory concentration <= NRG Tetracycline susceptibility test by minimum inhibitory concentration <= NRG Ciprofloxacin susceptibility test by minimum inhibitory concentration R [facility] Bacterial susceptibility panel - 09/11/17 11:00 Gentamicin susceptibility test by minimum inhibitory concentration >= NRG Trimethoprim/sulfamethoxazole susceptibility test by minimum inhibitoryconcentration S NRG Ampicillin susceptibility test by minimum inhibitory concentration >= NRG Tobramycin susceptibility test by minimum inhibitory concentration 8 NRG Cefazolin susceptibility test by minimum inhibitory concentration <= NRG Ceftriaxone susceptibility test by minimum inhibitory concentration <= NRG Ampicillin/sulbactam susceptibility test by minimum inhibitory concentration R NRG Piperacillin/tazobactam susceptibility test by minimum inhibitory concentration S NRG Ciprofloxacin susceptibility test by minimum inhibitory concentration >= NRG Meropenem susceptibility test by minimum inhibitory concentration <= NRG Aztreonam susceptibility test by minimum inhibitory concentration <= NRG Extended spectrum beta lactamase (ESBL) producing bacteria susceptibility test by minimum inhibitory concentration - NRG Amikacin susceptibility test by minimum inhibitory concentration S NRG [id number] - 10/30/17 09:05 Serum or plasma urea nitrogen measurement (mass/volume) 15 mg/dL 7-18 Serum or plasma creatinine measurement (mass/volume) 0.81 mg/dL 0.60-1.30 Serum or plasma urea nitrogen/creatinine mass ratio 19 NRG Serum or plasma creatinine measurement with calculation of estimated glomerular filtration rate > NRG Encounters ACCT No. Visit Date/Time Discharge Status Pt. Type Provider Facility Loc./Unit Complaint [id number] 06/07/2018 16:20:00 06/07/2018 23:59:59 CLS Outpatient MEERA POOLE APRN [facility] HEAD TRAUMA,FALL SAME LEVEL LAST NIGHT [id number] 03/09/2018 12:30:00 03/09/2018 23:59:59 CLS Preadmit AWA MARTÍNEZ MD [facility] RAD CHRONIC DISEQUILIBRIUM [id number] 10/30/2017 08:55:00 10/30/2017 23:59:59 CLS Outpatient AWA MARTÍNEZ MD [facility] ASTHMATIC BRONCHITIS,LUNG NODULE [id number] 09/11/2017 11:25:00 09/11/2017 23:59:59 CLS Outpatient AWA MARTÍNEZ MD [facility] LABNPT [id number] 05/27/2017 09:21:00 05/27/2017 23:59:59 CLS Outpatient AWA MARTÍNEZ MD [facility] LUNG NODULE [id number] 02/12/2017 08:16:00 02/12/2017 23:59:59 CLS Outpatient AWA MARTÍNEZ MD [facility] RAD DYSPHASIA [id number] 10/30/2016 09:44:00 10/30/2016 23:59:59 CLS Outpatient APOLINAR MANCINI DO [facility] RAD ABD PAIN [id number] 10/30/2016 09:40:00 10/30/2016 23:59:59 CLS Outpatient AWA MARTÍNEZ MD [facility] RAD NODULE [id number] 08/21/2016 08:14:00 08/21/2016 12:35:00 DIS Outpatient ANABELA PALOMARES MD [facility] ENDO SCREENING; DYSPHAGIA [id number] 08/20/2016 08:00:00 08/20/2016 09:00:00 DIS Outpatient ANABELA PALOMARES MD [facility] PREOP SCREENING; DYSPHAGIA [id number] 07/18/2016 08:16:00 07/18/2016 23:59:59 CLS Outpatient AWA MARTÍNEZ MD [facility] RAD THYROID NODULE E04.1 [id number] 06/29/2016 10:22:00 06/29/2016 12:22:00 DIS Emergency AVNI RENEE MD [facility] ER FALL/HEAD INJ [id number] 04/09/2016 08:29:00 04/09/2016 23:59:59 CLS Outpatient AWA MARTÍNEZ MD [facility] RAD LEFT LUNG NODULE [id number] 01/19/2016 07:20:00 01/19/2016 23:59:59 CLS Outpatient AWA MARTÍNEZ MD [facility] RAD LT LUNG NODULE [id number] 01/18/2016 08:55:00 01/18/2016 23:59:59 CLS Outpatient AWA MARTÍNEZ MD [facility] RAD CHEST, PA LATERAL [id number] 10/02/2015 08:47:00 10/02/2015 23:59:59 CLS Outpatient APOLINAR MANCINI DO [facility] RAD G90.01 [id number] 09/26/2015 10:08:00 09/26/2015 23:59:59 CLS Outpatient APOLINAR MANCINI DO [facility] CARD SYNCOPE [id number] 08/08/2015 09:55:00 08/08/2015 23:59:59 CLS Outpatient AWA SNELL MD [facility] RAD RTC [id number] 05/22/2015 11:51:00 05/22/2015 13:02:00 DIS Outpatient FLORENCIA RAYMOND MD [facility] CARD DISC DISORDER WITH RADICULOPAHY LUMBAR [id number] 04/26/2015 09:58:00 04/26/2015 23:59:59 CLS Outpatient AWA SNELL MD [facility] RAD LUMBAR RADICULOPATHY [id number] 07/08/2014 11:10:00 07/08/2014 23:59:59 CLS Outpatient AWA MARTÍNEZ MD [facility] RAD SINUS CONGESTION [id number] 01/05/2014 11:46:00 01/05/2014 23:59:59 CLS Outpatient APOLINAR MANCINI DO [facility] RAD COUGH, [id number] 10/25/2013 21:18:00 10/25/2013 21:45:00 DIS Emergency ERICA DANIEL MD [facility] ER EYE IRRITATION [id number] 10/05/2013 11:05:00 10/05/2013 11:58:00 DIS Emergency FARNAZ CLEMENTS APRN [facility] ER FALL/HEAD INJURY [id number] 06/08/2013 07:49:00 06/08/2013 23:59:59 CLS Outpatient AWA MARTÍNEZ MD [facility] RAD GLOBIS SENSATION,HEADACHES [id number] 12/16/2012 06:05:00 12/16/2012 23:59:59 CLS Outpatient AWA SNELL MD [facility] SDC LEFT ANKLE LOOSE BODY [id number] 12/14/2012 10:29:00 12/14/2012 23:59:59 CLS Outpatient AWA SNELL MD [facility] PREOP LEFT ANKLE LOOSE BODY [id number] 09/22/2018 11:30:00 PEN Preadmit APOLINAR MANCINI DO [facility] RAD OSTEOPENIA [id number] 10/29/2017 14:37:00 Document Registration [id number] 01/18/2016 08:53:00 Document Registration [id number] 05/18/2014 09:55:00 Document Registration [id number] 04/28/2014 11:36:00 Document Registration [id number] 04/28/2014 11:30:00 Document Registration [id number] 01/17/2012 08:23:00 Document Registration [id number] 12/20/2011 09:26:00 Document Registration [id number] 12/06/2011 06:55:00 Document Registration [id number] 08/30/2011 18:51:00 Document Registration [id number] 01/16/2011 08:55:00 Document Registration [id number] 01/09/2011 07:52:00 Document Registration [id number] 09/11/2010 20:37:00 Document Registration [id number] 08/14/2010 20:26:00 Document Registration
--- NOTE | 2018-09-01 12:48 | ED Fall/Injury ---
General Chief Complaint: Trauma-Non Activation Stated Complaint: FALL Nursing Triage Note: TO ED PER EMS REPORTS WAS WALKING DOWN STAIRS FELT DIZZY AND FELL. LAST SHE REMEMBERS IS THE FALL Source: patient Exam Limitations: no limitations History of Present Illness Date Seen by Provider: Sep 01, 2018 Time Seen by Provider: 12:42 Initial Comments To ER by EMS from home with reports of a fall down 2-3 stairs. She states that she got dizzy and fell. She falls quite frequently. Her tetanus is up-to-date. She has a laceration over the right eyebrow. Occurred: just prior to arrival Severity: moderate Allergies and Home Medications Allergies Coded Allergies: Penicillins (Verified Allergy, Mild, 08/21/16) cephalexin (Verified Allergy, Mild, HIVES, TONGUE SWELLS, 05/26/08) midazolam HCl (Verified Allergy, Mild, "SHAKING", 08/21/16) Iodinated Contrast- Oral and IV Dye (Verified Allergy, Unknown, HIVES, 08/21/16) Uncoded Allergies: ENVIRONMENTAL (Allergy, Mild, 05/19/08) Home Medications Alprazolam 0.25 Mg Tablet, 0.25 MG PO BID PRN for ANXIETY, (Reported) Atorvastatin 20 Mg Tablet, 20 MG PO DAILY, (Reported) Buspirone HCl 5 Mg Tablet, 5 MG PO BID, (Reported) Ergocalciferol 50,000 Unit Capsule, 50,000 UNIT PO WEEKLY, (Reported) Hydrocodone/Acetaminophen 1 Each Tablet, 1-2 TAB PO Q4H PRN for PAIN-MODERATE, (Reported) Levothyroxine Sodium 50 Mcg Tablet, 50 MCG PO DAILY, (Reported) Metoprolol Succinate 50 Mg Tab.er.24h, 50 MG PO DAILY, (Reported) Sertraline HCl 100 Mg Tablet, 200 MG PO DAILY, (Reported) take 2 (100mg) tabs Tramadol HCl 50 Mg Tablet, 50-100 MG PO Q6H PRN for PAIN-MILD, (Reported) take 1-2 (50mg) tab Patient Home Medication List Home Medication List Reviewed: Yes Review of Systems Review of Systems Constitutional: see HPI Eyes: No Symptoms Reported Ears, Nose, Mouth, Throat: no symptoms reported Cardiovascular: no symptoms reported Genitourinary: no symptoms reported Musculoskeletal: no symptoms reported Skin: no symptoms reported Psychiatric/Neurological: No Symptoms Reported Past Vjhespi-Unfmlx-Oyioud Hx Patient Social History Alcohol Use: Denies Use Recreational Drug Use: No Smoking Status: Former Smoker Recent Foreign Travel: No Contact w/Someone Who Travel: No Recent Infectious Disease Expo: No Recent Hopitalizations: No Immunizations Up To Date Tetanus Booster (TDap): More than 5yrs Seasonal Allergies Seasonal Allergies: Yes Past Medical History Surgeries: Yes (left knee, left pelvis, chest tube, nasopharyngeal cancer) Orthopedic Respiratory: No Cardiac: Yes (30% blockage in the LAD) Coronary Artery Disease, Hypertension Neurological: No Reproductive Disorders: No 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 Sexually Transmitted Disease: No Gastrointestinal: Yes Gastroesophageal Reflux Musculoskeletal: Yes (Spinal stenosis) Arthritis, Chronic Back Pain Endocrine: Yes Hypothyroidsim Hearing Impairment: Hard of Hearing Cancer: Yes (nasopharyngeal ca) Skin Did You Recieve Any Treatments: Yes What Type of Treatment Did You: Radiation Psychosocial: Yes Depression Integumentary: No Blood Disorders: No Adverse Reaction/Blood Tranf: No Physical Exam Vital Signs Vital Signs - First Documented 09/01/18 09/01/18 12:12 14:09 Temp 96.6 Pulse 62 Resp 18 B/P (MAP) 140/98 (112) Pulse Ox 97 O2 Delivery Room Air Capillary Refill : Less Than 3 Seconds Height, Weight, BMI Height: 5'6.00" Weight: 130lbs. 0.0oz. [age]yo; 21.0 BMI Method:Stated General Appearance: WD/WN, no apparent distress HEENT: PERRL/EOMI, normal ENT inspection Neck: full range of motion, tender lateral Respiratory: no respiratory distress, no accessory muscle use Gastrointestinal: normal bowel sounds, non tender Neurologic/Psychiatric: alert, normal mood/affect, oriented x 3 Skin: normal color, warm/dry Procedures/Interventions Wound Location: Face Wound Length (cm): 3 Wound's Depth, Shape: linear, sub Q Wound Explored: clean Anesthesia: Lidocaine w/ Epi Volume Anesthetic (ccs): 2 Suture: Prolene Suture Size: 5-0 Number of Sutures: 5 Layer Closure?: 1 Number Deep Layer Sutures: 0 Progress Anesthetized with 3 mL of 2% lidocaine with epinephrine. Wound then scrubbed with chlorhexidine/saline solution and irrigated with 40 mL the same, no foreign bodies identified and closed with 5 simple interrupted sutures size 5-0 Prolene. Progress/Results/Core Measures Results/Orders My Orders Orders - CLEMENTS,PETER J ASSISTANT EDUCATION DIRECTOR Ct Head/Cervical Spine Wo (09/01/18 12:41) Lidocaine/Epi 1% 1:100,000 (Xylocaine /E (09/01/18 13:45) Lidocaine/Epi 2% 1:100,000 (Xylocaine/Ep (09/01/18 13:36) Acetaminophen Tablet (Tylenol Tablet) (09/01/18 14:00) Ibuprofen Tablet (Motrin Tablet) (09/01/18 14:00) Medications Given in ED Current Medications Medications Dose Ordered Sig/Mine Route Start Time Stop Time Status Last Admin Dose Admin Acetaminophen 1,000 mg ONCE ONCE PO 09/01/18 14:00 09/01/18 14:01 DC 09/01/18 14:06 1,000 MG Ibuprofen 600 mg ONCE ONCE PO 09/01/18 14:00 09/01/18 14:01 DC 09/01/18 14:06 600 MG Lidocaine/ Epinephrine 2 ml ONCE ONCE INJ 09/01/18 13:45 09/01/18 13:46 DC 09/01/18 14:07 2 ML Vital Signs/I&O 09/01/18 09/01/18 12:12 14:09 Temp 96.6 Pulse 62 56 Resp 18 18 B/P (MAP) 140/98 (112) 158/86 (110) Pulse Ox 97 96 O2 Delivery Room Air Blood Pressure Mean: 112 Diagnostic Imaging Diagonstic Imaging: CT Comments NAME: AWA TELLO [facility] REC#: [id number] PT STATUS: REG ER : 04/22/1971 PHYSICIAN: FARNAZ CLEMENTS APRN ADMIT DATE: 09/01/18/ER Draft Date of Exam:09/01/18 CT HEAD WO-R/O STROKE INDICATION: Seizure and altered mental status. TECHNIQUE: A noncontrast brain CT was performed. FINDINGS: There are no extra-axial fluid collections. No intracranial hemorrhage. No intracranial mass or mass effect. No midline shift. The ventricles are normal in size and position. There is contrast present from a recent CT chest. The calvarial windows appear unremarkable. IMPRESSION: No acute intracranial abnormality. Dictated on workstation # [id number] Dict: 09/01/18 1217 Trans: 09/01/18 1220 [id number] Interpreted by: TAVON CHAN MD Electronically signed by: Departure Communication (Admissions) Rigid cervical collar removed at 1338 Impression Primary Impression: Scalp hematoma Qualified Codes: S00.03XA - Contusion of scalp, initial encounter Additional Impressions: Scalp laceration Qualified Codes: S01.01XA - Laceration without foreign body of scalp, initial encounter Cervical myofascial strain Qualified Codes: S16.1XXA - Strain of muscle, fascia and tendon at neck level, initial encounter Disposition: 01 HOME, SELF-CARE Condition: Stable Departure-Patient Inst. Decision time for Depature: 13:57 Referrals: APOLINAR MANCINI DO (PCP/Family) Primary Care Physician Patient Instructions: Laceration Repair With Stitches (DC) Add. Discharge Instructions: 1. Return to ER for any concerns 2. Return to the ER in 5-7 days to have the stitches removed. Follow-up with your doctor next week he may shower allowing water and over the starting today. All discharge instructions reviewed with patient and/or family. Voiced understanding. Copy Copies To 1: APOLINAR MANCINI PETER J APRN Sep 01, 2018 12:48
--- NOTE | 2018-09-01 13:12 | NUR ---
TO CT PER CART C COLLAR IN PLACE
--- NOTE | 2018-09-01 13:20 | NUR ---
RETURN FROM CT.
--- NOTE | 2018-09-01 13:34 | Diagnostic Imaging Report ---
PROCEDURE: CT head and CT cervical spine without contrast. TECHNIQUE: Multiple contiguous axial images were obtained through the brain and cervical spine without the use of intravenous contrast. Sagittal and coronal reformations through the cervical spine were then performed. Auto Exposure Controls were utilized during the CT exam to meet ALARA standards for radiation dose reduction. INDICATION: Head and neck pain after fall. COMPARISON: Comparison made with prior examination 06/07/2018. FINDINGS: There is prominence of the ventricles and sulci. There is no hydrocephalus. There is no midline shift. There is no intracranial mass, hemorrhage or extra-axial fluid collection. There is a right frontal scalp hematoma. Calvarium is intact. Sinuses and mastoid air cells are clear. There is some straightening of the normal cervical lordosis. The vertebral body heights are well-maintained. There is multilevel degenerative disc disease as well as some posterior facet arthropathy. There is no fracture or traumatic subluxation. The odontoid is intact and the lateral masses are well aligned. There is scarring in both lung apices. Prevertebral soft tissues are within normal limits. IMPRESSION: 1. Right frontal scalp hematoma. 2. Age-appropriate atrophy however no acute intracranial abnormality. 3. Moderate cervical spondylosis and degenerative disc disease without acute fracture or traumatic subluxation. Dictated by: Dictated on workstation # [id number]
[2018-09-01] MEDS ORDERED: LIDOCAINE/EPI 2% 1:100,00 (XYLOCAINE) 20 ML VIAL ONE (13:36)
[2018-09-01] MEDS ORDERED: LIDOCAINE/EPI 1%-1:100,000 (XYLOCAINE) 20ML INJ ONE (13:45)
[2018-09-01] MEDS ORDERED: ACETAMINOPHEN 500 MG TAB (TYLENOL) PO ONE (14:00)
[2018-09-01] MEDS ORDERED: IBUPROFEN 600 MG (MOTRIN) TAB PO ONE (14:00)
[2018-09-01 14:09] VITALS: BP 158/86
== END 2018-09-01 14:09 | disposition home or self-care (01) ==
LOC: EDUNIT# 12:12 → ER 12:13
DX: S01.01XA Laceration without foreign body of scalp, initial encounter (principal); S16.1XXA Strain of muscle, fascia and tendon at neck level, initial encounter; I10 Essential (primary) hypertension; I25.10 Atherosclerotic heart disease of native coronary artery without angina pectoris; K21.9 Gastro-esophageal reflux disease without esophagitis; E03.9 Hypothyroidism, unspecified; F32.9 Major depressive disorder, single episode, unspecified; Z85.828 Personal history of other malignant neoplasm of skin; Z90.710 Acquired absence of both cervix and uterus; Z88.0 Allergy status to penicillin; Z88.1 Allergy status to other antibiotic agents; Z88.8 Allergy status to other drugs, medicaments and biological substances; Z91.041 Radiographic dye allergy status; Z87.891 Personal history of nicotine dependence; Z85.89 Personal history of malignant neoplasm of other organs and systems; W10.9XXA Fall (on) (from) unspecified stairs and steps, initial encounter; Y92.009 Unspecified place in unspecified non-institutional (private) residence as the place of occurrence of the external cause
CPT/HCPCS: 12032; 70450; 72125

== ENCOUNTER → 2019-02-18 | Outpatient (CLI) | payer MEDICARE, OTHER ==
--- NOTE | 2019-02-18 09:45 | Diagnostic Imaging Report ---
Clinical indications: Patient with deviated trachea. Exam: Axial CT scan of the neck performed without IV contrast. Sagittal and coronal reformatted images are created. Comparison: CT scan of the cervical spine dated 09/01/2018. Findings: Stable scarring in both lung apices. There is a stable roughly 16 mm low-density nodule in the right thyroid gland appears stable. Calcification seen posterior to the left thyroid gland. There is a cystic structure near the right glenohumeral joint which may represent. Paralabral cysts or joint effusion. Stable mild asymmetry of the nasopharynx with the left side more prominent than the right. There is no measurable mass. Otherwise, the oropharynx, hypopharynx, laryngeal soft tissue structures are symmetric and unremarkable. There is stable mild rightward deviation of the trachea. There is no mass seen in the region of the trachea. There is no neck lymphadenopathy. There is cervical spine atherosclerotic disease. The visualized portions of the oral cavity, tongue, sublingual space, and submandibular regions are unremarkable. The orbits and globes are unremarkable. Limited visualization intracranial structures are unremarkable. Paranasal sinuses and mastoid air cells are clear. There is cervical spine degenerative disease with vertebral body spurs and facet arthropathy. There is interval development of a type III odontoid process fracture with small component of the upper left C2 vertebral body also involved. The fracture is not significantly displaced. There is sclerosis and cortication appearance of the fracture margins. There is no significant bony bridging seen. Luciano odontoid pannus is again seen. There appears to be interval increased posterior epidural thickening at the C2 level with concern for at least moderate central canal stenosis. There is no other cervical spine fracture seen. There are old healed multiple left rib fractures noted. Impression: 1: There is interval development of a type III odontoid process fracture which is not significantly displaced. There is sclerosis and cortication of the fracture margins noted. This fracture appears to be subacute. There is a stable luciano odontoid pannus. There appears to be development of posterior epidural thickening at the C2 level with concern for at least moderate central canal stenosis. Patient has outside MRI of the cervical spine showing this fracture. Comparison with this CT to that outside MRI would be helpful. 2: Stable CT scan of the neck soft tissue with no evidence of developing mass or lymphadenopathy. Stable asymmetry of the left nasopharyngeal soft tissue with no measurable mass. 3: There is stable rightward deviation of the trachea, as visualized. 4: Again seen 16 mm right thyroid nodule. Nonemergent thyroid ultrasound is suggested for further evaluation. Results of this report is discussed with Dr. Mckee via the telephone on 02/18/2019 at 0930 hours. Dictated by: Dictated on workstation # [id number]
== END ==
LOC: RAD 07:43
PROVIDERS: ATTEND Physician Assistant
DX: J39.8 Other specified diseases of upper respiratory tract (principal); E04.1 Nontoxic single thyroid nodule; S12.101A Unspecified nondisplaced fracture of second cervical vertebra, initial encounter for closed fracture; X58.XXXA Exposure to other specified factors, initial encounter
CPT/HCPCS: 70490

== ENCOUNTER → 2020-08-21 | Outpatient (CLI) | payer OTHER, MEDICARE ==
[~2020-08-21] MED LIST changes: +ACHYD1T PO; +ALPR.25T PO; -ALPR0.254 PO; +CEPH-507 PO; +DOXY100T2 PO; -HYDR-3820 PO; -METO-370 PO; +METO50TA7 PO; +SERT-414 PO; -SERT100T8 PO; -TRAM50TA2 PO; +TRM50T PO
== END ==
LOC: LABNPT 06:40
PROVIDERS: ATTEND Orthopaedic Surgery
DX: Z01.812 Encounter for preprocedural laboratory examination (principal); Z20.822 Contact with and (suspected) exposure to COVID-19
CPT/HCPCS: 87635

== ENCOUNTER 2020-08-23 09:48 | Emergency (ER) | payer MEDICARE, OTHER ==
[~2020-08-23] VITALS: Ht 162 cm; Wt 54.0 kg
[2020-08-23 10:07] LABS: BASOPHILS % (AUTO) 0 % (0-10); BILIRUBIN,URINE NEGATIVE (NEGATIVE); CLARITY,URINE SL CLOUDY; COLOR,URINE YELLOW; EOSINOPHILS # (AUTO) 0.1 10^3/uL (0.0-0.3); EOSINOPHILS % (AUTO) 1 % (0-10); GLUCOSE, URINE (UA) NEGATIVE (NEGATIVE); HEMATOCRIT 34 % (35-52); HEMOGLOBIN 11.3 g/dL (11.5-16.0); KETONES,URINE NEGATIVE (NEGATIVE); LEUKOCYTE ESTERASE ,URINE NEGATIVE (NEGATIVE); LYMPHOCYTES # (AUTO) 0.7 10^3/uL (1.0-4.0); LYMPHOCYTES % (AUTO) 7 % (12-44); MEAN CORPUSCULAR HEMOGLOBIN 30 pg (25-34); MEAN CORPUSCULAR HGB CONC 33 g/dL (32-36); MEAN CORPUSCULAR VOLUME 90 fL (80-99); MONOCYTES # (AUTO) 0.5 10^3/uL (0.0-1.0); MONOCYTES % (AUTO) 5 % (0-12); NEUTROPHILS % (AUTO) 87 % (42-75); NITRITE,URINE NEGATIVE (NEGATIVE); PH,URINE 6.5 (5-9); PLATELET COUNT 315 10^3/uL (130-400); PROTEIN,URINE NEGATIVE (NEGATIVE); WHITE BLOOD COUNT 10.3 10^3/uL (4.3-11.0)
[2020-08-23 10:19] LABS: BACTERIA,URINE NEGATIVE /HPF; RBC,URINE RARE /HPF; SQUAMOUS EPITHELIAL CELL,UR RARE /HPF
[2020-08-23 10:20] LABS: CHLORIDE 95 MMOL/L (98-107); POTASSIUM 4.2 MMOL/L (3.6-5.0); SODIUM 133 MMOL/L (135-145)
[2020-08-23 10:21] LABS: CALCIUM 9.1 MG/DL (8.5-10.1)
[2020-08-23 10:22] LABS: GLUCOSE 98 MG/DL (70-105); TOTAL PROTEIN 7.1 GM/DL (6.4-8.2)
[2020-08-23 10:23] LABS: CARBON DIOXIDE 24 MMOL/L (21-32)
[2020-08-23 10:24] LABS: BILIRUBIN,TOTAL 0.5 MG/DL (0.1-1.0)
[2020-08-23 10:26] LABS: ALKALINE PHOSPHATASE 77 U/L (40-136); CREATININE SERUM 0.69 MG/DL (0.60-1.30); GFR ESTIMATED > 60
[2020-08-23 10:27] LABS: BUN/CREATININE RATIO 20
[2020-08-23 10:29] LABS: ALANINE AMINOTRANSFERASE 31 U/L (0-55)
[2020-08-23 10:55] LABS: BASOPHILS % (MANUAL) 0 %; EOSINOPHILS % (MANUAL) 0 %; LYMPHOCYTES % (MANUAL) 6 %; MONOCYTES % (MANUAL) 6 %; NEUTROPHILS % (MANUAL) 88 %; RBC MORPH NORMAL
--- NOTE | 2020-08-23 10:58 | Diagnostic Imaging Report ---
HISTORY: Right hip pain, fall. COMPARISON: None. TECHNIQUE: Two views of the right hip. FINDINGS: There is an intertrochanteric fracture of the proximal right femur without significant displacement. There is mild degenerative change in the right hip joint. There is enthesopathy at the greater trochanter. There is diffuse osteopenia. IMPRESSION: 1. Nondisplaced intertrochanteric fracture of the proximal right femur. Dictated by: Dictated on workstation # [id number]
--- NOTE | 2020-08-23 11:00 | Diagnostic Imaging Report ---
INDICATION: Fall. Right hip pain. Fracture. COMPARISON: 01/18/2016 FINDINGS: Single frontal view of the chest demonstrates normal heart size and pulmonary vascularity. The lungs are well aerated and clear. No large pleural effusion or pneumothorax is seen. The visualized osseous structures show no acute abnormalities. IMPRESSION: 1. No acute cardiopulmonary process. Dictated by: Dictated on workstation # [id number]
--- NOTE | 2020-08-23 11:12 | ED Fall/Injury ---
General Chief Complaint: Trauma-Non Activation Stated Complaint: HIP PAIN Nursing Triage Note: PT ARRIVED PER EMS FROM HOME, PT HAD FALL AT APPROX 0450 THIS AM. PT CO OF R HIP PAIN. PT FROM FALL. PT [facility]ED[facility] PT DENIES LOC. PT HAS SL IN L AC BY EMS. PT RECIEVED 100MCG OF FENTYL BY EMS. PT HAS HAD NEGATIVE COVID SWAB ON FRIDAY IN PREP FOR SURG Source: patient, EMS Exam Limitations: no limitations History of Present Illness Date Seen by Provider: Aug 23, 2020 Time Seen by Provider: 09:57 Initial Comments Patient presents ER by EMS from home where she experienced a fall approximately 5:00 this morning. She is being worked up by Dr. Woody for a left hip replacement. And is now having pain on movement of her right hip. No previous injury or replacement of her right hip. She is not having any pain elsewhere or in her back. No numbness or tingling. She is not on a blood thinner. She denies dysuria. She says she was walking up four stairs and fell. She denies striking her head nor loss of consciousness. Location Injury Occurred: HOME Allergies and Home Medications Allergies Coded Allergies: Penicillins (Verified Allergy, Mild, 08/21/16) cephalexin (Verified Allergy, Mild, HIVES, TONGUE SWELLS, 05/26/08) midazolam HCl (Verified Allergy, Mild, "SHAKING", 08/21/16) Iodinated Contrast- Oral and IV Dye (Verified Allergy, Unknown, HIVES, 08/21/16) Uncoded Allergies: ENVIRONMENTAL (Allergy, Mild, 05/19/08) Home Medications ALPRAZolam 0.25 Mg Tablet, 0.25 MG PO BID PRN for ANXIETY, (Reported) Atorvastatin 20 Mg Tablet, 20 MG PO DAILY, (Reported) Buspirone HCl 5 Mg Tablet, 5 MG PO BID, (Reported) Doxycycline Hyclate 100 Mg Tablet, 100 MG PO BID Prescribed by: FARNAZ CLEMENTS on 11/06/191851 Ergocalciferol 50,000 Unit Capsule, 50,000 UNIT PO WEEKLY, (Reported) Hydrocodone Bit/Acetaminophen 1 Each Tablet, 1-2 TAB PO Q4H PRN for PAIN-MODERA TE, (Reported) Levothyroxine Sodium 50 Mcg Tablet, 50 MCG PO DAILY, (Reported) Metoprolol Succinate 50 Mg Tab.er.24h, 50 MG PO DAILY, (Reported) Sertraline HCl 100 Mg Tablet, 200 MG PO DAILY, (Reported) take 2 (100mg) tabs Tramadol HCl 50 Mg Tablet, 50-100 MG PO Q6H PRN for PAIN-MILD, (Reported) take 1-2 (50mg) tab Patient Home Medication List Home Medication List Reviewed: Yes Review of Systems Review of Systems Constitutional: No chills, No diaphoresis Eyes: Denies Blindness, Denies Blurred Vision, Denies Drainage Ears, Nose, Mouth, Throat: denies ear pain, denies ear discharge Respiratory: No cough, No phlegm, No short of breath Cardiovascular: No chest pain, No edema, No palpitations Gastrointestinal: No abdominal pain, No constipation Musculoskeletal: see HPI; No back pain; joint pain All Other Systems Reviewed Negative Unless Noted: Yes Past Ovueqqe-Nrgrvf-Tghfsr Hx Patient Social History Alcohol Use: Denies Use Smoking Status: Never a Smoker Recent Infectious Disease Expo: No Recent Hopitalizations: Yes Immunizations Up To Date Tetanus Booster (TDap): Less than 5yrs Seasonal Allergies Seasonal Allergies: Yes Past Medical History Surgeries: Yes (left knee, left pelvis, chest tube, nasopharyngeal cancer) Orthopedic Respiratory: No Cardiac: Yes (30% blockage in the LAD) Coronary Artery Disease, Hypertension Neurological: No Reproductive Disorders: 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 Sexually Transmitted Disease: No Genitourinary: No Gastrointestinal: Yes Gastroesophageal Reflux Musculoskeletal: Yes (Spinal stenosis) Arthritis, Chronic Back Pain Endocrine: Yes Hypothyroidsim Hearing Impairment: Hard of Hearing Cancer: Yes (nasopharyngeal ca) Skin Did You Recieve Any Treatments: Yes What Type of Treatment Did You: Radiation Psychosocial: Yes Depression Integumentary: No Blood Disorders: No Adverse Reaction/Blood Tranf: No Physical Exam Vital Signs Vital Signs - First Documented 08/23/20 08/23/20 09:48 12:25 Temp 36.7 Pulse 60 Resp 20 B/P (MAP) 166/76 (106) Pulse Ox 96 O2 Delivery Nasal Cannula O2 Flow Rate 2.00 Capillary Refill : Less Than 3 Seconds Height, Weight, BMI Height: 5'6.00" Weight: 130lbs. 0.0oz. 58.530750im; 20.00 BMI Method:Stated General Appearance: WD/WN, moderate distress HEENT: PERRL/EOMI, normal ENT inspection, TMs normal, pharynx normal Neck: non-tender, full range of motion, supple, normal inspection Cardiovascular: normal peripheral pulses, regular rate, rhythm Respiratory: lungs clear, normal breath sounds, no respiratory distress, no accessory muscle use Peripheral Pulses: 2+ Radial Pulses (R), 2+ Radial Pulses (L) Gastrointestinal: normal bowel sounds, non tender, soft Extremities: normal capillary refill, other (Tenderness to palpation over greater trochanter right femur.) Neurologic/Psychiatric: alert, normal mood/affect, oriented x 3 Skin: normal color, warm/dry [place] Coma Score Best Eye Response: (4) Open Spontaneously Best Verbal Response: (5) Oriented Best Motor Response: (6) Obeys Commands [place] Total: 15 Procedures/Interventions Suture Size: 5-0 Progress/Results/Core Measures Results/Orders Lab Results Laboratory Tests Test 08/23/20 10:03 Range/Units White Blood Count 10.3 4.3-11.0 10^3/uL Red Blood Count 3.80 3.80-5.11 10^6/uL Hemoglobin 11.3 L 11.5-16.0 g/dL Hematocrit 34 L 35-52 % Mean Corpuscular Volume 90 80-99 fL Mean Corpuscular Hemoglobin 30 25-34 pg Mean Corpuscular Hemoglobin Concent 33 32-36 g/dL Red Cell Distribution Width 13.7 10.0-14.5 % Platelet Count 315 130-400 10^3/uL Mean Platelet Volume 10.0 9.0-12.2 fL Immature Granulocyte % (Auto) 0 % Neutrophils (%) (Auto) 87 H 42-75 % Lymphocytes (%) (Auto) 7 L 12-44 % Monocytes (%) (Auto) 5 0-12 % Eosinophils (%) (Auto) 1 0-10 % Basophils (%) (Auto) 0 0-10 % Neutrophils # (Auto) 9.0 H 1.8-7.8 10^3/uL Lymphocytes # (Auto) 0.7 L 1.0-4.0 10^3/uL Monocytes # (Auto) 0.5 0.0-1.0 10^3/uL Eosinophils # (Auto) 0.1 0.0-0.3 10^3/uL Basophils # (Auto) 0.0 0.0-0.1 10^3/uL Immature Granulocyte # (Auto) 0.0 0.0-0.1 10^3/uL Neutrophils % (Manual) 88 % Lymphocytes % (Manual) 6 % Monocytes % (Manual) 6 % Eosinophils % (Manual) 0 % Basophils % (Manual) 0 % Blood Morphology Comment NORMAL Urine Color YELLOW Urine Clarity SL CLOUDY Urine pH 6.5 5-9 Urine Specific [place] 1.020 1.016-1.022 Urine Protein NEGATIVE NEGATIVE Urine Glucose (UA) NEGATIVE NEGATIVE Urine Ketones NEGATIVE NEGATIVE Urine Nitrite NEGATIVE NEGATIVE Urine Bilirubin NEGATIVE NEGATIVE Urine Urobilinogen 0.2 < = 1.0 MG/DL Urine Leukocyte Esterase NEGATIVE NEGATIVE Urine RBC (Auto) NEGATIVE NEGATIVE Urine RBC RARE /HPF Urine WBC NONE /HPF Urine Squamous Epithelial Cells RARE /HPF Urine Crystals NONE /LPF Urine Bacteria NEGATIVE /HPF Urine Casts NONE /LPF Urine Mucus SMALL H /LPF Urine Culture Indicated NO Sodium Level 133 L 135-145 MMOL/L Potassium Level 4.2 3.6-5.0 MMOL/L Chloride Level 95 L 98-107 MMOL/L Carbon Dioxide Level 24 21-32 MMOL/L Anion Gap 14 5-14 MMOL/L Blood Urea Nitrogen 14 7-18 MG/DL Creatinine 0.69 0.60-1.30 MG/DL Estimat Glomerular Filtration Rate > 60 BUN/Creatinine Ratio 20 Glucose Level 98 70-105 MG/DL Calcium Level 9.1 8.5-10.1 MG/DL Corrected Calcium 9.1 8.5-10.1 MG/DL Total Bilirubin 0.5 0.1-1.0 MG/DL Aspartate Amino Transf (AST/SGOT) 33 5-34 U/L Alanine Aminotransferase (ALT/SGPT) 31 0-55 U/L Alkaline Phosphatase 77 40-136 U/L Total Protein 7.1 6.4-8.2 GM/DL Albumin 4.0 3.2-4.5 GM/DL My Orders Orders - KRUNAL ANGEL Hip, Right, 2 Views (08/23/20 09:58) Ct Head/Cervical Spine Wo (08/23/20 09:58) Cbc With Automated Diff (08/23/20 09:58) Comprehensive Metabolic Panel (08/23/20 09:58) Ua Culture If Indicated (08/23/20 09:58) Catheter(Urinary) Insert & Ass 03,15 (08/23/20 09:58) Manual Differential (08/23/20 10:03) Chest 1 View, Ap/Pa Only (08/23/20 10:47) Fentanyl Inj (Sublimaze Injection) (08/23/20 11:32) Fentanyl Inj (Sublimaze Injection) (08/23/20 11:45) Fentanyl Inj (Sublimaze Injection) (08/23/20 12:52) Medications Given in ED Current Medications Medications Dose Ordered Sig/Mine Route Start Time Stop Time Status Last Admin Dose Admin Fentanyl Citrate 50 mcg Q1H PRN IVP 08/23/20 11:45 08/23/20 13:00 DC 08/23/20 12:53 50 MCG Fentanyl Citrate 100 mcg STK-MED ONCE .ROUTE 08/23/20 12:52 08/23/20 12:54 DC 08/23/20 12:53 50 MCG Vital Signs/I&O 08/23/20 08/23/20 09:48 12:25 Temp 36.7 Pulse 60 60 Resp 20 20 B/P (MAP) 166/76 (106) 119/73 (106) Pulse Ox 96 100 O2 Delivery Nasal Cannula O2 Flow Rate 2.00 Blood Pressure Mean: 106 Progress Progress Note : Time: 12:00 Progress Note Imaging reveals hip fracture which was elected to go too [facility]. No orthopedic surgery was available locally. An extra 50 mcg of fentanyl were used to control her pain which was adequate. Diagnostic Imaging Diagonstic Imaging: Xray Plain Films/CT/US/NM/MRI: chest Comments [facility], [place], [place] NAME: NENA HUGHESBILL oChen [facility] REC#: [id number] PT STATUS: REG ER : 1945 PHYSICIAN: KRUNAL ANGEL MD ADMIT DATE: 08/23/20/ER Draft Date of Exam:08/23/20 CHEST 1 VIEW, AP/PA ONLY INDICATION: Fall. Right hip pain. Fracture. COMPARISON: 01/18/2016 FINDINGS: Single frontal view of the chest demonstrates normal heart size and pulmonary vascularity. The lungs are well aerated and clear. No large pleural effusion or pneumothorax is seen. The visualized osseous structures show no acute abnormalities. IMPRESSION: 1. No acute cardiopulmonary process. Dictated on workstation # [id number] Dict: 08/23/20 1053 Trans: 08/23/20 1100 [facility] [id number] Interpreted by: ENEIDA BARRIGA MD Electronically signed by: Reviewed: Reviewed by Wi Diagonstic Imaging: Xray Plain Films/CT/US/NM/MRI: hip (r) Comments [facility] [place] NAME: JUAN MIGUEL HUGHES [facility] REC#: [id number] PT STATUS: REG ER : 1945 PHYSICIAN: KRUNAL ANGEL MD ADMIT DATE: 08/23/20/ER Draft Date of Exam:08/23/20 HIP, RIGHT, 2 VIEWS HISTORY: Right hip pain, fall. COMPARISON: None. TECHNIQUE: Two views of the right hip. FINDINGS: There is an intertrochanteric fracture of the proximal right femur without significant displacement. There is mild degenerative change in the right hip joint. There is enthesopathy at the greater trochanter. There is diffuse osteopenia. IMPRESSION: 1. Nondisplaced intertrochanteric fracture of the proximal right femur. Dictated on workstation # [id number] Dict: 08/23/20 1055 Trans: 08/23/20 1058 [facility] [id number] Interpreted by: GORAN WISE MD Electronically signed by: Reviewed: Reviewed by Wi Diagonstic Imaging: CT Plain Films/CT/US/NM/MRI: c-spine, head Comments [facility] [place] NAME: JUAN MIGUEL HUGHES [facility] REC#: [id number] PT STATUS: REG ER : 1945 PHYSICIAN: KRUNAL ANGEL MD ADMIT DATE: 08/23/20/ER Draft Date of Exam:08/23/20 CT HEAD/CERVICAL SPINE WO PROCEDURE: CT head and CT cervical spine without contrast. TECHNIQUE: Multiple contiguous axial images were obtained through the brain and cervical spine without the use of intravenous contrast. Sagittal and coronal reformations through the cervical spine were then performed. Auto Exposure Controls were utilized during the CT exam to meet ALARA standards for radiation dose reduction. INDICATION: Fall. Head and neck pain. Scalp contusion. COMPARISON: 02/18/2019. 09/01/2018. FINDINGS: CT HEAD: No large acute territorial ischemia, mass, or hemorrhage. No midline shift or mass effect. Decreased attenuation is seen in the periventricular and subcortical white matter. The ventricles and cortical sulci are prominent. The basilar cisterns are patent and unremarkable. The calvarium is intact. The visualized paranasal sinuses are clear. CT CERVICAL SPINE: No acute fracture or dislocation is seen in the cervical spine. No focal osseous lesions. Vertebral body heights are well-maintained. The craniocervical junction is well-maintained. Advanced degenerative changes are seen in the cervical spine with disc osteophyte complexes and uncovertebral arthropathy. Severe spinal canal stenosis is present at the C3-C4 level. Soft tissues of the neck are unremarkable. Included lungs are clear. IMPRESSION: 1. No hemorrhage or focal intra-axial mass. No CT evidence of large acute territorial ischemia. 2. No acute fracture or dislocation in the cervical spine. 3. Advanced degenerative changes in the cervical spine with severe spinal canal stenosis at C3-C4. Dictated on workstation # [id number] Dict: 08/23/20 1136 Trans: 08/23/20 1141 [id number] Interpreted by: ROSA AGUERO DO Electronically signed by: Reviewed: Reviewed by Me Departure Impression Primary Impression: Closed right hip fracture Qualified Codes: S72.001A - Fracture of unspecified part of neck of right femur, initial encounter for closed fracture Additional Impression: Fall Qualified Codes: W19.XXXA - Unspecified fall, initial encounter Disposition: T-[facility] Condition: Stable Transfer Transfer Reason: Exceeds level of care (No Orhto Coverage) Time Spoke to Accepting Phy: 12:00 Transfer Progress Notes No local orthopedics were nutrition specialist. The patient desires to go to [facility] so we made contact with Dr. Bustamante [phone] nutrition specialist for orthopedics at [facility] and he agrees to accept the patient. Because of the trauma we are calling the ER for transfer. Discussed the case with Dr. Brownlee, emergency room. Dr. Bustamante will be accepting physician. [place] Method of Transfer: EMS Departure-Patient Inst. Referrals: APOLINAR MANCINI DO (PCP/Family) Primary Care Physician Copy Copies To 1: APOLINAR MANCINI TITUS J Aug 23, 2020 11:12
[2020-08-23] MEDS ORDERED: fentaNYL INJ 100 MCG/2 ML AMP ONE ×2 (11:32→12:52)
[2020-08-23] MEDS: fentaNYL INJ 100 MCG/2 ML AMP IVP PRN ×2 (11:37→12:53)
--- NOTE | 2020-08-23 11:42 | Diagnostic Imaging Report ---
PROCEDURE: CT head and CT cervical spine without contrast. TECHNIQUE: Multiple contiguous axial images were obtained through the brain and cervical spine without the use of intravenous contrast. Sagittal and coronal reformations through the cervical spine were then performed. Auto Exposure Controls were utilized during the CT exam to meet ALARA standards for radiation dose reduction. INDICATION: Fall. Head and neck pain. Scalp contusion. COMPARISON: 02/18/2019. 09/01/2018. FINDINGS: CT HEAD: No large acute territorial ischemia, mass, or hemorrhage. No midline shift or mass effect. Decreased attenuation is seen in the periventricular and subcortical white matter. The ventricles and cortical sulci are prominent. The basilar cisterns are patent and unremarkable. The calvarium is intact. The visualized paranasal sinuses are clear. CT CERVICAL SPINE: No acute fracture or dislocation is seen in the cervical spine. No focal osseous lesions. Vertebral body heights are well-maintained. The craniocervical junction is well-maintained. Advanced degenerative changes are seen in the cervical spine with disc osteophyte complexes and uncovertebral arthropathy. Severe spinal canal stenosis is present at the C3-C4 level. Soft tissues of the neck are unremarkable. Included lungs are clear. IMPRESSION: 1. No hemorrhage or focal intra-axial mass. No CT evidence of large acute territorial ischemia. 2. No acute fracture or dislocation in the cervical spine. 3. Advanced degenerative changes in the cervical spine with severe spinal canal stenosis at C3-C4. Dictated by: Dictated on workstation # [id number]
[2020-08-23 12:25] VITALS: BP 119/73
== END 2020-08-23 12:57 | disposition short-term general hospital (02) ==
LOC: EDUNIT# 09:52 → ER 09:53
DX: S72.144A Nondisplaced intertrochanteric fracture of right femur, initial encounter for closed fracture (principal); I10 Essential (primary) hypertension; F32.9 Major depressive disorder, single episode, unspecified; E03.9 Hypothyroidism, unspecified; I25.10 Atherosclerotic heart disease of native coronary artery without angina pectoris; G89.29 Other chronic pain; M54.9 Dorsalgia, unspecified; Z79.899 Other long term (current) drug therapy; Z79.890 Hormone replacement therapy; Z79.891 Long term (current) use of opiate analgesic; W10.8XXA Fall (on) (from) other stairs and steps, initial encounter
CPT/HCPCS: 36415; 51702; 70450; 71045; 72125; 73502; 80053; 81000; 85007; 85027

== ENCOUNTER → 2020-12-12 | Outpatient (CLI) | payer MEDICARE, OTHER | LOC: LABNPT 06:44 | PROVIDERS: ATTEND Orthopaedic Surgery | DX: Z01.812 Encounter for preprocedural laboratory examination (principal); Z20.822 Contact with and (suspected) exposure to COVID-19 | CPT/HCPCS: 87635 ==

== ENCOUNTER 2021-04-01 17:27 | Emergency (ER) | payer MEDICARE, OTHER ==
[~2021-04-01] VITALS: Ht 165 cm; Wt 46.7 kg
--- NOTE | 2021-04-01 17:42 | ED Upper Extremity ---
General Stated Complaint: L SHOULDER FX Source: patient Exam Limitations: no limitations (FARNAZ CLEMENTS APRN) History of Present Illness Date Seen by Provider: Apr 01, 2021 Time Seen by Provider: 17:40 Initial Comments To ER by private vehicle from [facility] urgent care with reports of left shoulder fracture. She fell yesterday striking left shoulder against the fireplace. She did hit her head but does not report that she lost consciousness. No neck pain. She was found to have a fractured proximal humerus with an inferiorly dislocated left humeral head. Onset: yesterday Severity: moderate Pain/Injury Location: left shoulder Method of Injury: unknown Modifying Factors: Worse With Movement (FARNAZ CLEMENTS APRN) Allergies and Home Medications Allergies Coded Allergies: Penicillins (Verified Allergy, Mild, 08/21/16) cephalexin (Verified Allergy, Mild, HIVES, TONGUE SWELLS, 05/26/08) midazolam HCl (Verified Allergy, Mild, "SHAKING", 08/21/16) Iodinated Contrast- Oral and IV Dye (Verified Allergy, Unknown, HIVES, 08/21/16) Uncoded Allergies: ENVIRONMENTAL (Allergy, Mild, 05/19/08) Patient Home Medication List Home Medication List Reviewed: Yes (FARNAZ CLEMENTS APRN) ALPRAZolam (Xanax Tablet) 0.25 Mg Tablet, 0.25 MG PO BID PRN for ANXIETY, (Reported) Entered as Reported by: MARK FAUST on 06/29/16 1046 Atorvastatin (Lipitor 20MG) 20 Mg Tablet, 20 MG PO DAILY, (Reported) Entered as Reported by: KAYLYNN QUAN on 12/14/12 1048 Buspirone HCl (Buspirone HCl) 5 Mg Tablet, 5 MG PO BID, (Reported) Entered as Reported by: MARK FAUST on 06/29/16 1046 Doxycycline Hyclate (Doxycycline Hyclate) 100 Mg Tablet, 100 MG PO BID Prescribed by: FARNAZ CLEMENTS on 11/06/19 185 Ergocalciferol (Vitamin D) 50,000 Unit Capsule, 50,000 UNIT PO WEEKLY, (Reported) Entered as Reported by: KAYLYNN QUAN on 12/14/12 1049 Hydrocodone Bit/Acetaminophen (HYDROcodone/APAP 10/325 TABLET) 1 Each Tablet, 1- 2 TAB PO Q4H PRN for PAIN-MODERATE, (Reported) Entered as Reported by: CATIE LILLY on 08/20/16 0843 Levothyroxine Sodium (Levothyroxine Sodium) 50 Mcg Tablet, 50 MCG PO DAILY, (Reported) Entered as Reported by: MARK FAUST on 06/29/16 1046 Metoprolol Succinate (Metoprolol Succinate) 50 Mg Tab.er.24h, 50 MG PO DAILY, (Reported) Entered as Reported by: MARK FAUST on 06/29/16 1046 Sertraline HCl (Sertraline HCl) 100 Mg Tablet, 200 MG PO DAILY, (Reported) Entered as Reported by: MARK FAUST on 06/29/16 1046 Tramadol HCl (Tramadol HCl) 50 Mg Tablet, 50-100 MG PO Q6H PRN for PAIN-MILD, (Reported) Entered as Reported by: MARK FAUST on 06/29/16 1046 Review of Systems Constitutional: see HPI EENTM: see HPI Respiratory: no symptoms reported Cardiovascular: no symptoms reported Genitourinary: no symptoms reported Musculoskeletal: see HPI Skin: no symptoms reported Psychiatric/Neurological: No Symptoms Reported (FARNAZ CLEMENTS APRN) Past Gizzouq-Eoqtmv-Txnszk Hx Immunizations Up To Date Tetanus Booster (TDap): Less than 5yrs (FARNAZ CLEMENTS APRN) Seasonal Allergies Seasonal Allergies: Yes (FARNAZ CLEMENTS APRN) Past Medical History Surgeries: Yes (left knee, left pelvis, chest tube, nasopharyngeal cancer) Orthopedic Respiratory: No Cardiac: Yes (30% blockage in the LAD) Coronary Artery Disease, Hypertension Neurological: No 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 Sexually Transmitted Disease: No Genitourinary: No Gastrointestinal: Yes Gastroesophageal Reflux Musculoskeletal: Yes (Spinal stenosis) Arthritis, Chronic Back Pain Endocrine: Yes Hypothyroidsim Hearing Impairment: Hard of Hearing Cancer: Yes (nasopharyngeal ca) Skin Did You Recieve Any Treatments: Yes What Type of Treatment Did You: Radiation Psychosocial: Yes Depression Integumentary: No Blood Disorders: No Adverse Reaction/Blood Tranf: No (FARNAZ CLEMENTS APRN) Physical Exam Vital Signs Vital Signs - First Documented 04/01/21 17:44 Temp 36.4 Pulse 51 Resp 18 B/P (MAP) 138/89 (105) Pulse Ox 97 (AVNI RENEE MD) Vital Signs Capillary Refill : (FARNAZ CLEMENTS APRN) Height, Weight, BMI Height: 5'6.00" Weight: 130lbs. 0.0oz. 58.947380ql; 20.00 BMI Method:Stated General Appearance: WD/WN, no apparent distress HEENT: PERRL/EOMI, normal ENT inspection Respiratory: no respiratory distress, no accessory muscle use Shoulder: normal inspection, non-tender, ecchymosis (About the entire upper arm. Compartments are soft. Normal sensation distally at the fingertips), limited ROM, pain Wrist: Yes normal inspection, Yes non-tender Hand: normal inspection, non-tender Neurologic/Psychiatric: alert, normal mood/affect, oriented x 3 (FARNAZ CLEMENTS APRN) Procedures/Interventions Suture Size: 5-0 (FARNAZ CLEMENTS APRN) Progress/Results/Core Measures Results/Orders Vital Signs/I&O 04/01/21 04/01/21 17:44 18:42 Temp 36.4 Pulse 51 55 Resp 18 18 B/P (MAP) 138/89 (105) 132/74 Pulse Ox 97 98 (AVNI RENEE MD) Departure Communication (Admissions) 1826-Humeral head is not dislocated. Humeral shaft is displaced somewhat. I will put her in one of our slings because the sling from urgent care she states is digging into her neck. She states that she has plenty of pain medication at home. I offered to send her in a prescription or send her home with some but she states that she already has some and does not need anymore. She already has follow-up tomorrow with Dr. Woody. (FARNAZ CLEMENTS APRN) Impression Primary Impression: Proximal humerus fracture Disposition: 01 HOME, SELF-CARE Condition: Stable Departure-Patient Inst. Decision time for Depature: 18:26 (FARNAZ CLEMENTS APRN) Referrals: KLEBER WOODY MD, JUSTIN S MD ORENDER, JACQUELINE S DO (PCP/Family) Primary Care Physician DERRICK THAKUR MD Patient Instructions: Upper Arm Fracture Add. Discharge Instructions: 1. Wear the sling at all times. Follow-up with your doctor next week. Call Dr. Woody for orthopedic surgeon of your choosing tomorrow for follow-up. Joseluis n medication as directed. Ice pack to the shoulder. ATTENDING PHYSICIAN NOTE: I was physically present as attending physician in the emergency department during the care of this patient, but I was not directly involved in the decision making or delivery of care for this patient. (AVNI RENEE MD) FARNAZ CLEMENTS APRN Apr 01, 2021 17:42 AVNI RENEE MD Apr 02, 2021 04:52
--- NOTE | 2021-04-01 18:20 | Diagnostic Imaging Report ---
INDICATION: Left shoulder pain post fall. TECHNIQUE: Three views of the left shoulder. CORRELATION STUDY: None. FINDINGS: There is a comminuted, impacted fracture of humeral head and neck. The humeral head is rotated, however, without tevin dislocation in relation to the glenoid. There is slight anterior and medial subluxation and impaction at the shaft. There is also noted asymmetric widening at the acromioclavicular joint with inferior positioning of the acromion in relation to the distal clavicle consistent with ligament injury. However, this appears likely nonacute. Old multifocal left-sided rib fracture deformities are present. IMPRESSION: 1. Impacted, angulated and slightly displaced fracture at the left humeral head and neck. 2. Abnormal widening of the left acromioclavicular joint; however, in relation to prior chest radiographs it likely is not acute. Additionally, there are multiple old healed left-sided rib fracture deformities. Dictated by: Dictated on workstation # [id number]
--- NOTE | 2021-04-01 18:30 | Diagnostic Imaging Report ---
PROCEDURE: CT head and CT cervical spine without contrast. TECHNIQUE: Multiple contiguous axial images were obtained through the brain and cervical spine without the use of intravenous contrast. Sagittal and coronal reformations through the cervical spine were then performed. Auto Exposure Controls were utilized during the CT exam to meet ALARA standards for radiation dose reduction. INDICATION: 76-year-old female, one day post fall, fracture of left upper extremity and shoulder dislocation, pain increasing in severity. CORRELATION STUDY: CT head and cervical spine 08/23/2020. FINDINGS: CT HEAD: Generalized atrophic changes with prominence of the ventricles and sulci. Prominent scattered areas of decreased attenuation likely owing to chronic small vessel ischemic disease. No definitive evidence for edema. No intracranial hemorrhage. No midline shift or mass effect. Basilar cisterns are patent. Bony calvarium intact. Visualized paranasal sinuses are clear. CT CERVICAL SPINE: There is a advanced multilevel cervical spondylosis present. Disc osteophyte complex and uncovertebral arthropathy is noted. Multilevel areas of canal and foraminal narrowing most severe at the C3-C4 level. There is no evidence for acute fracture. The odontoid intact. Cervicocranial junction unremarkable. Posterior elements intact and in normal alignment. Soft tissues demonstrate a prominent vascular calcification at the lung apices with emphysematous change. IMPRESSION: CT HEAD: 1. Negative for acute traumatic intracranial abnormality. CT CERVICAL SPINE: 1. Negative for acute fracture or traumatic subluxation. Moderate multilevel cervical spondylosis is present. Dictated by: Dictated on workstation # [id number]
[2021-04-01 18:42] VITALS: BP 132/74
== END 2021-04-01 18:42 | disposition home or self-care (01) ==
LOC: EDUNIT# 17:27 → ER 17:29
DX: S42.202A Unspecified fracture of upper end of left humerus, initial encounter for closed fracture (principal); I10 Essential (primary) hypertension; I25.10 Atherosclerotic heart disease of native coronary artery without angina pectoris; F32.9 Major depressive disorder, single episode, unspecified; E03.9 Hypothyroidism, unspecified; Z79.890 Hormone replacement therapy; G89.29 Other chronic pain; M54.9 Dorsalgia, unspecified; Z79.891 Long term (current) use of opiate analgesic; Z79.899 Other long term (current) drug therapy; W22.8XXA Striking against or struck by other objects, initial encounter
CPT/HCPCS: 70450; 72125; 73030; 99283; A4565

== ENCOUNTER 2021-06-17 13:38 | Emergency (ER) | payer MEDICARE, OTHER ==
[~2021-06-17] VITALS: Ht 162 cm; Wt 54.0 kg
--- NOTE | 2021-06-17 14:03 | ED Cough/URI ---
General Chief Complaint: Cough/Cold/Flu Symptoms Stated Complaint: HOARSE/CONGESTION Source: patient Exam Limitations: no limitations History of Present Illness Date Seen by Provider: Jun 17, 2021 Time Seen by Provider: 13:43 Initial Comments The patient presents to the ER by private conveyance the ICU where her is inpatient for pneumonia and chief complaint for the past 2 days she has had a little bit of dry mouth sore throat. She says she has a history of radiation due to her cancer and so has chronic dry mouth but because of the worsening hoarseness and sore throat she was concerned she might be catching something. She just wants to be checked out. She is not having difficulty with fluids, nausea vomiting fever chills cough shortness of air. 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 She uses a nasal spray but does not think she uses Zyrtec, Claritin or Yolanda. Allergies and Home Medications Allergies Coded Allergies: Penicillins (Verified Allergy, Mild, 08/21/16) cephalexin (Verified Allergy, Mild, HIVES, TONGUE SWELLS, 05/26/08) midazolam HCl (Verified Allergy, Mild, "SHAKING", 08/21/16) Iodinated Contrast- Oral and IV Dye (Verified Allergy, Unknown, HIVES, 08/21/16) Uncoded Allergies: ENVIRONMENTAL (Allergy, Mild, 05/19/08) Patient Home Medication List Home Medication List Reviewed: Yes ALPRAZolam (Xanax Tablet) 0.25 Mg Tablet, 0.25 MG PO BID PRN for ANXIETY, (Reported) Entered as Reported by: MARK FAUST on 06/29/16 1046 Atorvastatin (Lipitor 20MG) 20 Mg Tablet, 20 MG PO DAILY, (Reported) Entered as Reported by: KAYLYNN QUAN on 12/14/12 1048 Buspirone HCl (Buspirone HCl) 5 Mg Tablet, 5 MG PO BID, (Reported) Entered as Reported by: MARK FAUST on 06/29/16 1046 Doxycycline Hyclate (Doxycycline Hyclate) 100 Mg Tablet, 100 MG PO BID Prescribed by: FARNAZ CLEMENTS on 11/06/19 7832 Ergocalciferol (Vitamin D) 50,000 Unit Capsule, 50,000 UNIT PO WEEKLY, (Reported) Entered as Reported by: KAYLYNNABI QUAN on 12/14/12 1049 Hydrocodone Bit/Acetaminophen (HYDROcodone/APAP 10/325 TABLET) 1 Each Tablet, 1-2 TAB PO Q4H PRN for PAIN-MODERATE, (Reported) Entered as Reported by: CATIE LILLY on 08/20/16 0843 Levothyroxine Sodium (Levothyroxine Sodium) 50 Mcg Tablet, 50 MCG PO DAILY, (Reported) Entered as Reported by: MARK FAUST on 06/29/16 1046 Metoprolol Succinate (Metoprolol Succinate) 50 Mg Tab.er.24h, 50 MG PO DAILY, (Reported) Entered as Reported by: MARK FAUST on 06/29/16 1046 Sertraline HCl (Sertraline HCl) 100 Mg Tablet, 200 MG PO DAILY, (Reported) Entered as Reported by: MARK FAUST on 06/29/16 1046 Tramadol HCl (Tramadol HCl) 50 Mg Tablet, 50-100 MG PO Q6H PRN for PAIN-MILD, (Reported) Entered as Reported by: MARK FAUST on 06/29/16 1046 Review of Systems Review of Systems Constitutional: No chills, No diaphoresis EENTM: No ear discharge, No ear pain Respiratory: No cough, No short of breath Cardiovascular: No edema, No palpitations Gastrointestinal: No abdominal pain, No nausea, No vomiting Genitourinary: No discharge, No dysuria Musculoskeletal: No back pain, No joint pain All Other Systems Reviewed Negative Unless Noted: Yes Past Jeubqwx-Svvpuk-Rixllr Hx Patient Social History Tobacco Use?: No Use of E-Cig and/or Vaping dev: No Immunizations Up To Date Tetanus Booster (TDap): Less than 5yrs Seasonal Allergies Seasonal Allergies: Yes Past Medical History Surgery/Hospitalization HX: pmh: htn, thyroid, anxiety Surgeries: Yes (left knee, left pelvis, chest tube, nasopharyngeal cancer) Orthopedic Respiratory: No Cardiac: Yes (30% blockage in the LAD) Coronary Artery Disease, Hypertension Neurological: No Reproductive Disorders: No [employer] History: Hysterectomy Sexually Transmitted Disease: No Genitourinary: No Gastrointestinal: Yes Gastroesophageal Reflux Musculoskeletal: Yes (Spinal stenosis) Arthritis, Chronic Back Pain Endocrine: Yes Hypothyroidsim Hearing Impairment: Hard of Hearing Cancer: Yes (nasopharyngeal ca) Skin Did You Recieve Any Treatments: Yes What Type of Treatment Did You: Radiation Psychosocial: Yes Depression Integumentary: No Blood Disorders: No Adverse Reaction/Blood Tranf: No Physical Exam Vital Signs - First Documented 06/17/21 13:44 Temp 36.3 Pulse 69 Resp 18 B/P (MAP) 119/69 (86) Pulse Ox 99 O2 Delivery Room Air Capillary Refill : Height: 5'6.00" Weight: 130lbs. 0.0oz. [id number]; 17.00 BMI Method:Stated General Appearance: WD/WN, no apparent distress Eyes: Bilateral Eye Normal Inspection, Bilateral Eye PERRL, Bilateral Eye EOMI HEENT: PERRL/EOMI, normal ENT inspection, TMs normal; No pharynx normal (Dry or al mucosa with erythematous retropharynx without exudate or swollen tonsil) Neck: non-tender, full range of motion, supple, normal inspection, other (No significant anterior cervical lymphadenopathy.) Respiratory: lungs clear, normal breath sounds, no respiratory distress, no accessory muscle use Cardiovascular: normal peripheral pulses, regular rate, rhythm Gastrointestinal: non tender, soft Extremities: normal inspection, normal capillary refill Neurologic/Psychiatric: alert, normal mood/affect, oriented x 3 Skin: normal color, warm/dry Procedures/Interventions Suture Size: 5-0 Progress/Results/Core Measures Suspected Sepsis SIRS Temperature: Pulse: Respiratory Rate: Blood Pressure / Mean: Results/Orders Lab Results Laboratory Tests Test 06/17/21 13:54 Range/Units Influenza Type A (RT-PCR) Not Detected Not Detecte Influenza Type B (RT-PCR) Not Detected Not Detecte SARS-CoV-2 RNA (RT-PCR) Not Detected Not Detecte Group A Streptococcus Screen NEGATIVE NEGATIVE My Orders Orders - KRUNAL ANGEL Rapid Strep A Screen (06/17/21 13:59) Influenza A And B By Pcr (06/17/21 13:59) Covid 19 Inhouse Test (06/17/21 13:59) Vital Signs/I&O 06/17/21 13:44 Temp 36.3 Pulse 69 Resp 18 B/P (MAP) 119/69 (86) Pulse Ox 99 O2 Delivery Room Air Capillary Refill : Progress Note : Time: 14:02 Progress Note Aseptic vital signs. We have given her some ideas on how she can combat dry mouth. We will swab for strep, COVID and flu. She appears to be having seasonal allergies with postnasal drip and nasal congestion more than an infection however we cannot rule out a viral upper respiratory tract infection. Departure Impression Primary Impression: Xerostomia due to radiotherapy Additional Impression: Seasonal allergies Disposition: HOME, SELF-CARE Condition: Stable Departure-Patient Inst. Decision time for Depature: 14:58 Referrals: APOLINAR MANCINI DO (PCP/Family) Primary Care Physician Patient Instructions: Xerostomia Add. Discharge Instructions: Start putting in Biotene or a similar hydrating mouth jelly. Hard candies especially with xylitol can be helpful for protecting your teeth as well as stimulating salivary secretion. We will culture the swab of your throat over the next 2 to 3 days and if anything grows out on the culture plate then we will call you and set you up with appropriate medications. Follow-up with your primary care doctor if your symptoms do not improve. Return to the ER if you are having difficulty swallowing fluids, breathing or other worrisome symptoms. All discharge instructions reviewed with patient and/or family. Voiced understanding. KRUNAL ANGEL Jun 17, 2021 14:03
[2021-06-17 15:21] VITALS: BP 123/70
== END 2021-06-17 15:21 | disposition home or self-care (01) ==
LOC: EDUNIT# 13:38 → ER 13:39
DX: K11.7 Disturbances of salivary secretion (principal); J30.2 Other seasonal allergic rhinitis; Z20.822 Contact with and (suspected) exposure to COVID-19
CPT/HCPCS: 87430; 87636; 99283

== ENCOUNTER 2021-12-27 13:02 | Outpatient (CLI) | payer MEDICARE, OTHER ==
[~2021-12-27] VITALS: Ht 162.6 cm; Wt 49.7 kg
[2021-12-28] MEDS ORDERED: OXYB-52 PO (15:24)
[2021-12-28] MEDS ORDERED: NF-SODBICA PO (15:24)
[2021-12-28] MEDS ORDERED: MTP100TCR PO (15:24)
[2021-12-28] MEDS ORDERED: HYDR-3584 PO (15:24)
[2021-12-28] MEDS ORDERED: IPRA0.2S51 IH (15:24)
[2021-12-28] MEDS ORDERED: OMEP40CA6 PO (15:24)
[2021-12-28] MEDS ORDERED: FERR325T18 PO (15:24)
[2021-12-28] MEDS ORDERED: MULT-593 PO (15:24)
== END 2021-12-28 15:27 | disposition home or self-care (01) ==
LOC: PREOP 13:02
PROVIDERS: ATTEND Surgery
DX: Z01.818 Encounter for other preprocedural examination (principal)

== ENCOUNTER 2022-01-09 11:14 | Day surgery (SDC) | payer MEDICARE, OTHER ==
[~2022-01-09] VITALS: Ht 162.6 cm; Wt 49.7 kg
[2022-01-09] VITALS (7 sets, daily range): BP systolic 90–139; BP diastolic 53–74
[~2022-01-09 11:14] MED LIST changes: +FERR325T18 PO; +HYDR-3584 PO; +IPRA0.2S51 IH; +MTP100TCR PO; +MULT-593 PO; +NF-SODBICA PO; +OMEP40CA6 PO; +OXYB-52 PO
[2022-01-09] MEDS ORDERED: LACTATED RINGERS 1,000 ML IV STA (11:16)
[2022-01-09] MEDS ORDERED: HURRICAINE EXT TUBE (BENZOCAINE) XX PRN (11:30)
[2022-01-09] MEDS ORDERED: LIDOCAINE JELLY 2% 6 ML SYRINGE MM PRN (11:30)
--- NOTE | 2022-01-09 11:34 | Progress Note-Pre Operative ---
Pre-Operative Progress Note Date of Available H&P: Jan 09, 2022 Date H&P Reviewed: Jan 09, 2022 Time H&P Reviewed: 11:00 History & Physical: No changes noted Pre-Operative Diagnosis: dysphagia/GERD ANABELA PALOMARES MD Jan 09, 2022 11:34
[2022-01-09] MEDS ORDERED: PANT40TA2 PO (11:35)
--- NOTE | 2022-01-09 11:36 | Discharge Inst-Surgical ---
D/C Lap Instructions-KIDO New, Converted, or Re-Newed RX: RX on Chart Follow Up Activity as tolerated High Fiber Diet 25g or more per day Avoid Alcohol, Caffeine, Spicy Welcome and Acid foods. Drink 64 fluid oz or more of fluids per day. Symptoms to Report: Fever over 101 degree F, Nausea/Vomiting If any problems/questions: Contact your physician or go to Emergency Room ANABELA PALOMARES MD Jan 09, 2022 11:36
[2022-01-09] MEDS ORDERED: ONDANSETRON 4 MG (ZOFRAN) ORAL DISSOLVE TAB PO PRN (11:45)
[2022-01-09] MEDS ORDERED: ONDANSETRON 4 MG/2 ML (SDV) Z0FRAN IVP PRN (11:45)
[2022-01-09] MEDS ORDERED: PROPOFOL INJECTION 50 ML IV ONE (12:41)
--- NOTE | 2022-01-09 13:35 | Progress Note-Post Operative ---
Post-Operative Progess Note Surgeon (s)/Court Commissioner (s) Surgeon ANABELA PALOMARES MD Court Commissioner: none Pre-Operative Diagnosis dysphagia/GERD Post-Operative Diagnosis reflux esophagitis(grade C), distal esophageal stricture, small recurrent HH, mod-severe gastritis. Procedure & Operative Findings Date of Procedure 01/09/22 Procedure Performed/Findings EGD with bx and balloon dilatation. Anesthesia Type mac Estimated Blood Loss Estimated blood loss (mL): minimal Specimens/Packing Specimens Removed ge jxn, antrum ANABELA PALOMARES MD Jan 09, 2022 13:35
--- NOTE | 2022-01-09 14:17 | Anesthesia-General Post-Op ---
MAC Patient Condition Mental Status/LOC: Same as Preop Cardiovascular: Satisfactory Nausea/Vomiting: Absent Respiratory: Satisfactory Pain: Controlled Complications: Absent Post Op Complications Complications None Follow Up Care/Instructions Patient Instructions None needed. Anesthesiology Discharge Order Discharge Order Patient is doing well, no complaints, stable vital signs, no apparent adverse anesthesia problems. No complications reported per nursing. HUNG TOMAS CRNA Jan 09, 2022 14:16
--- NOTE | 2022-01-10 01:01 | OPERATIVE REPORT ---
DATE OF SERVICE: 01/09/2022 ATTENDING PRIMARY CARE PHYSICIAN: Dr. María Salmon PREOPERATIVE DIAGNOSES: Dysphagia, gastroesophageal reflux disease. POSTOPERATIVE DIAGNOSES: Reflux esophagitis, [place] grade C with a distal esophageal stricture, small to moderate size hiatal hernia approximately 2.5 cm in size, moderate to severe gastritis more towards the stomach, the antrum, no distal obstructions. PROCEDURE: EGD with biopsy and balloon dilatation. SURGEON: Anabela Palomares MD. ANESTHESIA: Monitored anesthesia care. ESTIMATED BLOOD LOSS: Minimal. FINDINGS: Reflux esophagitis, [place] grade C with a distal esophageal stricture, small to moderate size hiatal hernia approximately 2.5 cm in size, moderate to severe gastritis more towards the stomach, the antrum, no distal obstructions. DISPOSITION: The patient tolerated the procedure well. INDICATIONS: The patient is a 76-year-old female known to us. She underwent an EGD and was found to have gastritis as well as an esophageal stricture and underwent a dilatation procedure. She underwent a hill gastropexy in 2008. She has had recurrent issues with dysphagia, which has progressively worsened over the past few months. DESCRIPTION OF PROCEDURE: The patient was brought to the endoscopy suite and laid in the left lateral decubitus position. After adequate IV pain and sedative medications and monitored anesthesia care, the mouth piece was applied. Endoscope was placed through the mouth, visualizing pharynx and hypopharyngeal region. Vocal cords, epiglottis and vallecula identified and appeared to be normal. The endoscope was gently intubated in the esophageal opening and esophagus was insufflated. The endoscope was then advanced through the first, second and third portion of the esophagus at the level of the GE junction. Reflux esophagitis, [place] grade C identified as well as a mild distal esophageal stricture. A biopsy was taken with forceps with visualization and good hemostasis. The endoscope was then advanced into the stomach and the endoscope retroflexed visualizing a recurrent mild to moderate size hiatal hernia approximately 2.5 cm in size. There was also some moderate to severe gastritis more focused towards the stomach antrum, however, no ulcerations. A biopsy was taken in the antrum to rule out H. pylori. with visualization of good hemostasis. The endoscope was then advanced to the pylorus and the first and second portion of the duodenum, which were normal with no distal obstructions. The balloon was then placed into the stomach and pulled back to the area of the stricture. We then proceeded in a graded stepwise fashion from 2-4, then eventually 6 atmospheres of pressure or 20 mm in luminal diameter with moderate resistance and left this in place for 60 seconds. The balloon was then desufflated and removed with visualization with good hemostasis as well as no mucosal tears. The endoscope was then slowly withdrawn, taking a second look and suctioning all residual air with no additional findings. The patient tolerated the procedure well. PLAN: We will recommend the necessary lifestyle and dietary accommodation including small more frequent meals, avoiding eating at night as well as head elevation while lying supine. She also needs to avoid caffeinated beverages spicy, greasy and acidic foods. For now for her gastritis she is currently on omeprazole; however, we will also add pantoprazole 40 mg to be taken simultaneously at a different time during the day. If she does have recurrent episodes of dysphagia, we will have her follow up for repeat dilatation. Job ID: [id number] DocumentID: [id number] Dictated Date: 01/09/2022 13:18:21 Microwave Technician Date: 01/10/2022 01:00:00 Dictated By: ANABELA PALOMARES MD
== END 2022-01-09 14:16 | disposition home or self-care (01) ==
LOC: ENDO 11:14
PROVIDERS: ATTEND Surgery
DX: K21.00 Gastro-esophageal reflux disease with esophagitis, without bleeding (principal); K22.2 Esophageal obstruction; K44.9 Diaphragmatic hernia without obstruction or gangrene; K29.70 Gastritis, unspecified, without bleeding; Z79.899 Other long term (current) drug therapy; Z85.22 Personal history of malignant neoplasm of nasal cavities, middle ear, and accessory sinuses
CPT/HCPCS: 88305

== ENCOUNTER 2022-05-21 17:46 | Emergency (ER) | payer MEDICARE, OTHER ==
[~2022-05-21] VITALS: Ht 162 cm; Wt 50.0 kg
[~2022-05-21 17:46] MED LIST changes: +PANT40TA2 PO
--- NOTE | 2022-05-21 18:21 | ED Fall/Injury ---
General Chief Complaint: Cardiac/General Problems Stated Complaint: FALL/HEAD INJURY Nursing Triage Note: Patient ambulatory to ER w c/o low blood pressure. Patients daughter stated patient fell yesterday 1999 and didn't call anyone for 4 hrs she laid on the garage floor. Patient called daughter around midnight and doesn't recall falling. Patient's daughter thinks she lost conciousness. Patient went to urgent care and was sent to ER. Patient states she has a sore throat. Source: patient, family Exam Limitations: no limitations History of Present Illness Date Seen by Provider: May 21, 2022 Time Seen by Provider: 17:58 Initial Comments 77yoF with PMH of HTN coming in with family after a mechanical fall last night. Hit her head with possible LOC. No weakness, numbness, or severe pain anywhere right now. Does not take blood thinners. UTD on tetanus. Allergies and Home Medications Allergies Coded Allergies: Penicillins (Verified Allergy, Mild, 08/21/16) cephalexin (Verified Allergy, Mild, HIVES, TONGUE SWELLS, 05/26/08) midazolam HCl (Verified Allergy, Mild, "SHAKING", 08/21/16) Iodinated Contrast Media (Verified Allergy, Unknown, HIVES, 08/21/16) Uncoded Allergies: ENVIRONMENTAL (Allergy, Mild, 05/19/08) Patient Home Medication List Home Medication List Reviewed: Yes Atorvastatin (Lipitor 20MG) 20 Mg Tablet, 20 MG PO DAILY, (Reported) Entered as Reported by: KAYLYNN QUAN on 12/14/12 1048 Ferrous Sulfate (Ferrous Sulfate) 325 Mg (65 Mg Iron) Tablet, 325 MG PO DAILY, (Reported) Entered as Reported by: TISH JEFFERSON on 12/28/21 1524 Hydroxyzine HCl (Hydroxyzine HCl) 10 Mg Tablet, 10 MG PO DAILY, (Reported) Entered as Reported by: TISH JEFFERSON on 12/28/21 1524 Ipratropium [place] (Ipratropium [place]) 0.2 Mg/Ml (0.02 %) Solution, 0.2 MG IH UD, (Reported) Entered as Reported by: TISH JEFFERSON on 12/28/21 1524 Levothyroxine Sodium (Levothyroxine Sodium) 50 Mcg Tablet, 50 MCG PO DAILY, (Reported) Entered as Reported by: MARK FAUST on 06/29/16 1046 Metoprolol Succinate (Metoprolol Succinate) 100 Mg Tab.er.24h, 100 MG PO DAILY, (Reported) Entered as Reported by: TISH JEFFERSON on 12/28/21 152 Multivitamin with Minerals (Multiple Vitamin) 1 Each Tablet, 1 EACH PO DAILY, (Reported) Entered as Reported by: TISH JEFFERSON on 12/28/21 152 Omeprazole (Omeprazole) 40 Mg Capsule.dr, 40 MG PO DAILY, (Reported) Entered as Reported by: TISH JEFFERSON on 12/28/21 152 Oxybutynin Chloride (Oxybutynin Chloride ER) 5 Mg Tab.er.24, 5 MG PO DAILY, (Reported) Entered as Reported by: TISH JEFFERSON on 12/28/21 152 Pantoprazole Sodium (Protonix) 40 Mg Tablet.dr, 40 MG PO DAILY Prescribed by: ANABELA PALOMARES on 01/09/22 1135 Sertraline HCl (Sertraline HCl) 100 Mg Tablet, 200 MG PO DAILY, (Reported) Entered as Reported by: MARK FAUST on 06/29/16 1046 Sodium Bicarbonate (Sodium Bicarbonate) 650 Mg Tablet, 650 MG PO DAILY, (Reported) Entered as Reported by: TISH JEFFERSON on 12/28/21 152 Review of Systems Review of Systems Constitutional: No fever Eyes: No Symptoms Reported Ears, Nose, Mouth, Throat: no symptoms reported Respiratory: no symptoms reported Cardiovascular: no symptoms reported Gastrointestinal: no symptoms reported Musculoskeletal: see HPI Skin: no symptoms reported Psychiatric/Neurological: See HPI Past Xwvlqrk-Dromsj-Laylhq Hx Patient Social History Tobacco Use?: No Substance use?: No Alcohol Use?: No Immunizations Up To Date Tetanus Booster (TDap): Less than 5yrs First/Initial COVID19 Vaccinat: unknown Second COVID19 Vaccination Dontrell: 2020 Third COVID19 Vaccination Date: NO COVID19 Vaccine Pals Nurse: unknown Seasonal Allergies Seasonal Allergies: Yes Past Medical History Surgery/Hospitalization HX: pmh: htn, thyroid, anxiety. Nasalpharyngeal carcinoma. surgery: Left hip replacement. Surgeries: Yes (left knee, left pelvis, chest tube, nasopharyngeal cancer) Orthopedic Respiratory: No Cardiac: Yes (30% blockage in the LAD) Coronary Artery Disease, Hypertension Neurological: No Reproductive Disorders: No [employer] History: Hysterectomy Sexually Transmitted Disease: No Genitourinary: No Gastrointestinal: Yes Gastroesophageal Reflux Musculoskeletal: Yes (Spinal stenosis) Arthritis, Chronic Back Pain Endocrine: Yes Hypothyroidsim Hearing Impairment: Hard of Hearing Cancer: Yes (nasopharyngeal ca) Skin Did You Recieve Any Treatments: Yes What Type of Treatment Did You: Radiation Psychosocial: Yes Depression Integumentary: No Blood Disorders: No Adverse Reaction/Blood Tranf: No Physical Exam Vital Signs Vital Signs - First Documented 05/21/22 17:53 Temp 36.4 Pulse 132 Resp 18 B/P (MAP) 82/46 (58) Pulse Ox 93 O2 Delivery Room Air Capillary Refill : Less Than 3 Seconds Height, Weight, BMI Height: 5'6.00" Weight: 130lbs. 0.0oz. [id number]; 19.00 BMI Method:Stated General Appearance: no apparent distress, thin HEENT: PERRL/EOMI, pharynx normal, other (abrasion to right lateral occiput) Neck: non-tender, full range of motion, supple, normal inspection Cardiovascular: regular rate, rhythm, no edema, no murmur Respiratory: chest non-tender, lungs clear, normal breath sounds, no respiratory distress, no accessory muscle use Gastrointestinal: normal bowel sounds, non tender, soft; No distended, No guarding, No rebound Back: normal inspection, no CVA tenderness, no vertebral tenderness Extremities: normal range of motion, non-tender, normal inspection, no pedal edema, no calf tenderness, normal capillary refill Neurologic/Psychiatric: windows 7 deployment lead II-XII nml as tested, no motor/sensory deficits, alert, normal mood/affect, oriented x 3 Skin: normal color, warm/dry Lymphatic: no adenopathy Cathy Coma Score Best Eye Response: (4) Open Spontaneously Best Verbal Response: (5) Oriented Best Motor Response: (6) Obeys Commands Procedures/Interventions Suture Size: 5-0 Progress/Results/Core Measures Results/Orders My Orders Orders - JAVID RIOS MD Ct Head/Cervical Spine Wo (05/21/22 18:13) Vital Signs/I&O 05/21/22 17:53 Temp 36.4 Pulse 132 Resp 18 B/P (MAP) 82/46 (58) Pulse Ox 93 O2 Delivery Room Air Blood Pressure Mean: 58 Progress Progress Note : Progress Note 77-year-old female presenting after mechanical fall. ABCs were intact and vitals were stable on presentation. Physical exam with an occipital wound which is superficial. Tetanus is up-to-date. Neuro exam unremarkable. CT head and cervical spine ordered due to age and mechanism of injury. These were negative for any acute findings. Specifically I do not see any obvious bleed on my interpretation of the CT head. Patient did not require anything for pain medication. Has no other pain in her back or extremities that would be concerning. She has been ambulatory. I believe the patient is stable for discharge with outpatient follow-up. She was sent home with strict return precautions. Diagnostic Imaging Diagonstic Imaging: CT (head and c spine) Comments [facility], [place] NAME: JUAN MIGUEL HUGHES [facility] REC#: [id number] PT STATUS: REG ER : 1945 PHYSICIAN: JAVID RIOS MD ADMIT DATE: 05/21/22/ER Draft Date of Exam:05/21/22 CT HEAD/CERVICAL SPINE WO PROCEDURE: CT head and CT cervical spine without contrast. TECHNIQUE: Multiple contiguous axial images were obtained through the brain and cervical spine without the use of intravenous contrast. Sagittal and coronal reformations through the cervical spine were then performed. Auto Exposure Controls were utilized during the CT exam to meet ALARA standards for radiation dose reduction. INDICATION: Trauma, fall. Compared with head and cervical CT 04/01/2021. Head: Senescent cortical atrophy stable. Ventricular caliber and morphology stable. No focal or generalized cerebral edema. No evidence for an elevation of the intracerebral pressures. There is no hemorrhage. There are no acute or abnormal extra-axial fluid collections. The basilar cisterns patent. Orbits, sinuses, and calvarium appeared nonacute. No pneumocephalus, no hemo-sinus. No change. Cervical spine: Degenerative changes to the discs, endplates, and facets throughout the cervical spine are stable chronic finding. No acute fracture or facet dislocation. No paraspinal hemorrhage. No mass or fluid collection. Craniocervical relationship unremarkable. Degenerative changes throughout the cervical spine are present resulting in chronic severe canal stenosis at the C3-C4 level with severe bony bi-foraminal narrowing. The remaining levels showed less severe but substantial stable bony canal and foraminal stenoses. There is carotid atherosclerotic vascular calcifications. No acute abnormality. IMPRESSION: CT head: Stable chronic findings. No hemorrhage, fracture or change. CT cervical spine: Advanced degenerative changes with no fracture or dislocation. No change. Dictated on workstation # [id number] Dict: 05/21/227 Trans: 05/21/22 1842 [facility] [id number] Interpreted by: TONI MORGAN Electronically signed by: Departure Impression Primary Impression: Fall Qualified Codes: W19.XXXA - Unspecified fall, initial encounter Additional Impression: Closed head injury Qualified Codes: S09.90XA - Unspecified injury of head, initial encounter Disposition: HOME, SELF-CARE Condition: Stable Departure-Patient Inst. Decision time for Depature: 19:10 Referrals: APOLINAR MANCINI DO (PCP/Family) Primary Care Physician Patient Instructions: Minor Head Injury Add. Discharge Instructions: Fortunately there is nothing significant on the imaging of the head or neck. Likely does have a minor concussion which symptoms can include personality changes, headache, difficulty sleeping, sometimes sleeping more than usual. Typically this improves within a couple weeks. Follow-up with her regular doctor if things are not improving. Take Tylenol as needed for pain. Work/School Note: Family Work Note Patient Received Medical Care In the Emergency Department On: May 21, 2022 Patient Will Be Able to Return to Work/School On: May 22, 2022 JAVID RIOS MD May 21, 2022 18:21
--- NOTE | 2022-05-21 18:42 | Diagnostic Imaging Report ---
PROCEDURE: CT head and CT cervical spine without contrast. TECHNIQUE: Multiple contiguous axial images were obtained through the brain and cervical spine without the use of intravenous contrast. Sagittal and coronal reformations through the cervical spine were then performed. Auto Exposure Controls were utilized during the CT exam to meet ALARA standards for radiation dose reduction. INDICATION: Trauma, fall. Compared with head and cervical CT 04/01/2021. Head: Senescent cortical atrophy stable. Ventricular caliber and morphology stable. No focal or generalized cerebral edema. No evidence for an elevation of the intracerebral pressures. There is no hemorrhage. There are no acute or abnormal extra-axial fluid collections. The basilar cisterns patent. Orbits, sinuses, and calvarium appeared nonacute. No pneumocephalus, no hemo-sinus. No change. Cervical spine: Degenerative changes to the discs, endplates, and facets throughout the cervical spine are stable chronic finding. No acute fracture or facet dislocation. No paraspinal hemorrhage. No mass or fluid collection. Craniocervical relationship unremarkable. Degenerative changes throughout the cervical spine are present resulting in chronic severe canal stenosis at the C3-C4 level with severe bony bi-foraminal narrowing. The remaining levels showed less severe but substantial stable bony canal and foraminal stenoses. There is carotid atherosclerotic vascular calcifications. No acute abnormality. IMPRESSION: CT head: Stable chronic findings. No hemorrhage, fracture or change. CT cervical spine: Advanced degenerative changes with no fracture or dislocation. No change. Dictated by: Dictated on workstation # [id number]
[2022-05-21 19:20] VITALS: BP 126/64
== END 2022-05-21 19:25 | disposition home or self-care (01) ==
LOC: EDUNIT# 17:46 → ER 17:47
DX: S09.90XA Unspecified injury of head, initial encounter (principal); S00.01XA Abrasion of scalp, initial encounter; W19.XXXA Unspecified fall, initial encounter
CPT/HCPCS: 70450; 72125

== ENCOUNTER 2023-01-03 11:23 | Outpatient (RCR) | payer MEDICARE, OTHER ==
[~2023-01-03] VITALS: Ht 165.1 cm; Wt 50.0 kg
[2023-01-03] MEDS: FERRIC CARBOXYMALTOSE INJ 750 MG in NS (IVPB) 250 ML 250 ML IV SCH (11:57)
[2023-01-03 12:50] VITALS: BP 152/81
[2023-01-10 11:30] VITALS: BP 125/73
[2023-01-10] MEDS: FERRIC CARBOXYMALTOSE INJ 750 MG in NS (IVPB) 250 ML 250 ML IV SCH (11:45)
== END 2023-01-30 | disposition home or self-care (01) ==
LOC: SDC 11:23
PROVIDERS: ATTEND Nurse Practitioner Family
DX: D50.9 Iron deficiency anemia, unspecified (principal)
CPT/HCPCS: 96365